=== PATIENT | male | born 1955 | race Caucasian/White ===

== ENCOUNTER → 2020-07-13 17:54 | Outpatient (CLI) | payer BC, SELFPAY | PROVIDERS: PCP Family Medicine; Referring Provider Family Medicine; Visit Provider Family Medicine | DX: Z20.828 Contact with and (suspected) exposure to other viral communicable diseases (principal) | CPT/HCPCS: 87635; U0003 ==

== ENCOUNTER → 2020-11-05 12:24 | Outpatient (CLI) | payer BC, SELFPAY | PROVIDERS: PCP Family Medicine; Referring Provider Specialist; Visit Provider Specialist | DX: Z01.818 Encounter for other preprocedural examination (principal) | CPT/HCPCS: 36415; 80048; 85025; 87077; 87081 ==

== ENCOUNTER 2020-11-21 06:44 | Observation (INO) | payer BC, SELFPAY ==
[2020-11-05 12:57] LABS: Absolute Lymphocyte Count 2.39 X10^3/uL (0.83-4.51); Basophil# 0.05 X10^3/uL; Basophil% 0.7 % (0-1); Eosinophil# 0.29 X10^3/uL; Eosinophils% 3.8 % (0-5); Hematocrit 46.4 % (40-54); Hemoglobin 15.2 g/dL (13.0-16.5); Lymphocyte # 2.39 X10^3/ul (4.0); Lymphocyte % 31.7 % (19-41); Mean Corp Hgb Conc 32.8 g/dL (32-36); Mean Corpuscular Hgb 29.7 pg (27.0-32.0); Mean Corpuscular Volume 90.8 fL (80-94); Mean Platelet Vol. 9.6 fl (6.2-12.0); Monocyte# 0.82 X10^3/uL; Monocyte% 10.9 % (0-10); NRBC Flagged by Analyzer 0 % (0-5); Neutrophil # 3.98 X10^3/uL (2.7-7.7); Neutrophil % 52.6 % (47-70); Platelet Count 268 K/mm3 (150-450); RBC Distribution Width CV 12.8 % (11.6-14.6); RBC Distribution Width SD 42.2 fl (35.1-43.9); Red Blood Count 5.11 M/mm3 (4.6-6.2); White Blood Count 7.6 K/mm3 (4.4-11.0)
--- NOTE | 2020-11-05 13:11 | HP.PCM_ITS ---
History and Physical History and Physical [facility] Patient Name: Richy Garduno : 1955 From: CATIA GAN PA-C DATE OF SURGERY: 11/21/2020 SCHEDULED PROCEDURE: right total hip arthroplasty HISTORY OF PRESENT ILLNESS: Preoperative history and physical exam was performed on November 05, 2020. This is a 65-year-old male who has had ongoing pain in his right hip for several years. Patient's pain can reach 7/10 with activities. He does complain of right groin pain. He has been seen by Dr. Olivas for ongoing low back pain in which she has had an MRI. Pain is increased with going up and down stairs and walking. Patient states it does occasionally wake him at night and he has difficult time sleeping on his right side. Patient has had conservative measures with previous intra-articular hip injections. His last injection was on August 09, 2020 which only gave temporary relief. He has tried nonsteroidal anti-inflammatories and physical therapy with minimal relief. We are obtaining surgical clearance from the patient's primary care physician Dr. Urias. He currently denies any chest pain, shortness of breath, fevers chills, or recent infections. Patient denies previous surgery on his right hip. After failing conservative measures and discussing all treatment options of Dr. Shubham Barry, the patient does wish to proceed with a right total hip arthroplasty. REVIEW OF SYSTEMS: ROS: Const: Denies change in appetite, fever and weight change. CV: Denies chest pain, heart murmur and irregular heartbeat. Resp: Denies cough, pneumonia, shortness of breath, tuberculosis and wheezing. GI: Denies constipation, diarrhea, heartburn, nausea, rectal itching, bloody stools and vomiting. : Denies incontinence. Musculo: Reports gait disturbance, trouble walking and weakness, but denies leg swelling and pain. Skin: Reports history of shingles, but denies Raynaud's and tattoo. Neuro: Reports ambulatory dysfunction, dizziness and numbness/tingling but denies tremor. Psych: Denies anxiety, insomnia and stress. Dave/Lymph: Denies anemia, bleeding/bruising tendency and past transfusion. Reviewed, no changes. PAST MEDICAL HISTORY: Advance Care Plan: No Advance Directives Effective Date: 03/22/2020 PMH: Medical Problems: Hard of Hearing, High Blood Pressure, Hypercholesterolemia, Psoriasis Accidents: None Surgical Hx: Knee Arthroscopy RT - (2008) Dr. Zachary Asher RT Elbow - (2008) @ [facility] RT Knee - (1975) @ [facility] Anesthesia Complications: None Assistive Devices: Hearing Aid, Glasses, Contacts Reviewed and updated. SOCIAL HISTORY: SH: Marital: .Occupation: Retired - Compression Molding Machine Operator.Work Status: Retired.Hand Dominance: Right-handed. Personal Habits: Cigarette Use: Never Smoked Cigarettes.Smokeless Tobacco: Never Used Smokeless Tobacco.E-Cigarette Use: Never used.Alcohol: Occasionally.Drug Use: Denies Use.Enjoy Exercising: Exercises 1-3 X/Week. Reviewed, no changes. VITALS: Ht: 67 Wt: 178lb Wt k.741 BMI: 27.9 BP: 140/70 Pulse: 68 Resp: 14 T: 95.9 T: 35.5C Pain Level: 8 ALLERGIES: PNC - Rash Strawberries - Rash MEDICATIONS: Lisinopril 10 mg 1 by mouth every day, Crestor 20 mg 1 po qd, Centrum Silver 50+Men 50+Men 1 by mouth every day, Coq10 100 mg 1 by mouth every day PRE-OP EXAM: General appearance:NORMAL Other: Eyes: Conjunctivae and lids: NORMAL Pupils: ERR Ears, Nose, Mouth, and Throat: NORMAL Other: Inspection of lips, teeth and gums: NORMAL Other: Neck: Examination of neck: no masses noted. Respiratory: Assessment of respiratory effort: NORMAL Other: Auscultation of lungs: clear to auscultation no wheezes, rhonchi or rales. Cardiovascular: Auscultation of heart: regular rate and rhythm, no murmurs, gallops or rubs. Exam of carotid arteries: NORMAL Other: Gastrointestinal: Exam of abdomen: soft, nontender, nondistended bowel sounds present. PHYSICAL EXAMINATION: Patient walks with an antalgic gait. Right hip is cool to touch without erythema or signs of infection. He has mild tenderness to palpation over the greater trochanteric region on the right hip. He has obligatory external rotation with flexion. Range of motion: Active flexion 70, internal rotation neutral, external rotation 20. IMAGING STUDIES: Previous x-rays of the right hip reveal joint space narrowing with subchondral sclerosis, osteophyte formation consistent with severe stage IV osteoarthritis IMPRESSION: 1. Right hip osteoarthritis 2. Low back pain 3. Hypertension 4. Hypercholesterolemia 5. Psoriasis PLAN: Dr. Shubham Barry did discuss and review with the patient all treatment options including surgical versus nonsurgical options. Patient does wish to proceed with the above-stated procedure. Potential risks, benefits, and complications of the procedure were discussed in detail including but not limited to , infection, nerve and blood vessel damage, persistent pain, numbness, tingling, paresthesias, blood clot, pulmonary embolism, and requirement for possible further surgery. The patient expressed full understanding and has no further questions for the doctor. Patient does agree to proceed with the above-stated procedure and has signed the surgery consent form. We discussed the current risks associated with COVID 19. This does include the risk of exposure while in the hospital. Patient was reassured local hospitals have low infection rates and are taking all necessary precautions to avoid exposure to patients. In addition, we discussed strategies that can be used to help limit exposure including those that limit the patient's time in the hospital. Also using strategies to limit the patient's need for continued inpatient services after being discharged from the hospital. Patient was notified that we will need to comply with any screening or testing the hospital wishes to perform or that surgery may be delayed for any positive results. This dictation was created using voice recognition software. Phonetic and/or grammatical errors may exist. ___ I have re-examined the patient. There are no clinical changes since date of exam. ___ See progress notes for changes. ___ Dictated on admission Date: Time: Signature:
[2020-11-05 13:17] LABS: Anion Gap 3 (5-15); BUN 16 mg/dL (7-18); BUN/Creat Ratio 17.1 RATIO (10-20); Calcium,Total 9.4 mg/dL (8.5-10.1); Chloride 103 mmol/L (98-107); Creatinine, Serum 0.94 mg/dL (0.70-1.30); EST Glomerular Filtration Rate 87 mL/min (>60); Est Glom Filt Rate - Afr Amer 105 mL/min (>60); Glucose 91 mg/dL (74-106); Potassium 4.5 mmol/L (3.5-5.1); Sodium Level 138 mmol/L (136-145)
[2020-11-07 10:10] LABS: Magnesium 2.2 mg/dL (1.6-2.6)
[2020-11-21] VITALS (14 sets, daily range): BP systolic 93–167; BP diastolic 55–114; PULSE 82–98; RESP 16–18; TEMP 36.2–37.9; O2SAT 91–100; BMI 28.2
[2020-11-21] MEDS: Scopolamine 1mg/72hr Patch 1 PATCH TD ×2 (05:50→06:29)
[2020-11-21] MEDS: Gabapentin 600 MG Tablet PO (06:28)
[2020-11-21] MEDS: Celecoxib 200 MG Capsule 400 MG PO (06:28)
[2020-11-21] MEDS: Lactated Ringers 1,000 ML 75 ML IV (06:28)
[2020-11-21] MEDS: Lactated Ringers 1,000 ML 999 ML IV ×2 (06:28→09:24)
[2020-11-21] MEDS: Acetaminophen 500 MG Tablet 1000 MG PO ×3 (06:29→22:20)
--- NOTE | 2020-11-21 06:45 | RAD_ITS ---
STUDY: X-RAY - PELVIS AND RIGHT HIP REASON FOR EXAM: Postop right hip arthroplasty. TECHNIQUE: 2 views of the pelvis and hip. COMPARISON: Intraoperative images obtained the same day. FINDINGS: There is postoperative gas in the soft tissues. Normal bilateral superior and inferior pubic rami. Normal pubic symphysis. Normal bilateral ischial tuberosities. There is a right hip arthroplasty without evidence of complication. RAD/Hip Min 2 Views (Portable) IMPRESSION: Uncomplicated right hip arthroplasty. Electronically Signed: Pedrito Ward MD at 9:47 EST Tel , Service support ,
[2020-11-21] MEDS: Cefazolin 2 GM in 0.9% Normal Saline 100 ML IV (07:22)
[2020-11-21 07:26] LABS: Bedside Glucose 108 mg/dL (70-110)
[2020-11-21] MEDS: dexAMETHasone 10 MG/ML Vial IV (07:33)
--- NOTE | 2020-11-21 08:10 | RAD_ITS ---
STUDY: X-RAY - PELVIS AND RIGHT HIP REASON FOR EXAM: Fluoroscopy for right hip arthroplasty. TECHNIQUE: 3 intraoperative images of the pelvis and hip. COMPARISON: None. FINDINGS: There is a right hip arthroplasty without evidence of complication. Electronically Signed: Pedrito Ward MD at 10:20 EST Tel , Service support , RAD/Hip 1 view with Pelvis
--- NOTE | 2020-11-21 08:41 | OP.PCM_ITS ---
Report of Operation Date of Procedure: 11/21/20 Pre-Operative Diagnosis: Right hip primary osteoarthritis Post-Operative Diagnosis: Right hip primary osteoarthritis Surgery/Procedure Performed:: Right minimally invasive direct anterior total replacement Description of Surgical Findings:: Stable hip with equal leg lengths grain blender: Billie Quispe Type of Anesthesia:: General Anesthesiologist: Nestor Ghosh Special Medications: 2 g Ancef, 1 g TXA at incision, 1 g TXA closure, 10 mg Decadron, joint cocktail (5 mg Duramorph, 30 mL of 0.5% Ropivicaine, 1000 units of epinephrine, 30 mg of Toradol) Specimen's removed: Bony cuts Estimated Blood Loss (mL): 150 Fluids Replaced: 1000 mL crystalloid Description of Procedure: Components used: 1. Accolade 2 Ol[place]stead femoral stem size 3 127? 2. [place]stead trident 2 acetabular shell size 52 mm 3. [place] X3 polyethylene e 4. Elliott Biolox delta 36mm, 0mm femoral head Brief history operative indications: 65 yo M who failed conservative measures for their hip osteoarthritis. X-rays were consistent with osteoarthritis including joint space narrowing, osteophyte formation and subchondral cysts. Total hip replacement was discussed with the patient with risks and benefits including but not limited to blood loss, DVTs, PEs, neurovascular damage, dislocation, general risks of anesthesia including loss of life. Patient demonstrated an understanding medical clearance is obtained the patient was consented for surgery. Procedure: On the date of procedure the patient's right hip was marked in the preoperative area. Patient was then taken back to the operating room where anesthesia ass umed control of the C-spine and airway and administered anesthetic. Patient was transferred to the operating table and placed in the supine position. The hips were placed at the break of the bed and a sacral bump was placed. The right lower extremity was then prepped out in a sterile fashion using chlorhexidine while the surgeon scrubbed. The PA was vital in the positioning of the patient. Upon reentering the room the right lower extremity was draped in the standard orthopedic fashion and the incision was marked. A timeout was called and everyone agreed upon the side, the site, the procedure be performed, antibody given, and patient's identity. At this time incision was made through skin, subcutaneous tissue, and fat down to fascia. The fascia was then incised and the TFL was retracted laterally. A retractor was placed on the lateral border of the femoral neck. Attention was directed to the inferior portion of the approach and all crossing vessels were identified and appropriately coagulated. A retractor was then placed on the medial portion of the femoral neck. The anterior capsule was then cleared of all soft tissue and then H shaped capsulotomy was made. The retractors were then placed inside the capsule. The femoral neck was identified and a cleanup cut was made. At this time a power corkscrew was used to remove the femoral head. Attention was then turned toward the acetabulum where the soft tissues were appropriately retracted and the acetabulum was sequentially reamed to 52 mm. A 52 mm cup was then selected and impacted into place. Acetabular liner was impacted into place and locking mechanism was verified. The position of the acetabular cup was then verified under live fluoroscopy. Attention was then turned to the femur. Soft tissue releases on the medial and lateral femoral neck were appropriately done, the leg was externally rotated and lateralized. A Rouse retractor was placed medially and proximally to the greater trochanter this allowed appropriate visualization and exposure of the femoral canal. Rongeour was then used to remove excess lateral bone. A canal finder and entry broach were used to open the proximal canal. Once we verified we were down the femoral canal we subsequently broached up to a size 3 femur. The appropriate neck was placed in the previously selected head was trialed with a 0 mm neck. Traction was pulled and the hip was reduced with internal rotation. Once it was appropriately reduced and stability was checked. There was minimal shuck, equal leg lengths and appropriate stability with hyperext ension and external rotation as well as with 90? flexion and internal rotation. Fluoroscopy was then also used to verify the position of the components and leg lengths using the contralateral side for comparison. The trial components were then dislocated the proximal femur was again exposed and the components were removed from the wound. The final components were verified and opened. The wound was copiously irrigated out with normal saline. The acetabulum was checked for any residual debris. The final components were placed and impacted. Traction and internal rotation were again used to reduce the hip. After adequate reduction the hip remained stable with appropriate leg lengths. The final components were once again checked with live fluoroscopy and were found to be satisfactory. The wound was then copiously irrigated with normal saline once more, and hemostasis was obtained. Closure was then done using #1 Vicryl runner to close the fascia. A 2-0 vicryl interuppted sutures were used to close the subcutaneous skin. A 3-0 Monocryl and Steri-Strips were used for final skin closure. A Silverlon dressing was placed. Patient was awakened by anesthesia and transferred to the [facility]. Patient was then transferred to the PACU for recovery. Postoperative plan: Patient will get 24 hours postop antibiotics. Patient will get in-house physical therapy and will be weight-bear as tolerated. Patient will follow up in office in 2 weeks for a wound check and x-rays. Aspirin 81 mg twice daily. - Complications No intraoperative complications - Admit VTE Documentation VTE Present on Admission: No VTE Mechan Device Prophylaxis: SCD's, Thigh High DONNY Hose VTE Pharm Prophylaxis ordered?: Yes
[2020-11-21] MEDS: Lactated Ringers 1,000 ML 125 ML IV ×3 (10:32→23:17)
--- NOTE | 2020-11-21 13:00 | NURSING ---
RN CM Assessment Introduced role of RN CM to patient.? Patient is alert, oriented and able?to participate in RN CM Assessment. ?Care providers, pharmacy, and demographics verified. Admit Dx: Rt THR Re-Admit: No Barriers/Issues: None PCP: Aung Urias Specialists: None [facility]erred [facility]acy[facility] Insurance: [place] [facility] Benefit:?Yes LNOK: Ann Garduno LW/HPOA: None, denies any offered advanced directive information or completion on this admission. Informed that he can complete as an outpatient with the health and social care teacher dept at a later time if he chooses. Living Arrangements:? Lives with in a H, 3 steps to enter. ADL?s: Independent with ambulation and ADLs Transportation: Both patient and drive, will transport upon DC DME: [facility] HHC: None. Patient states that he was going to outpatient PT with [facility] for his back- last session was Thursday11.19.20 and states has an appointment this Thursday11.26.20 to restart for his Hip replacement. SNF: None Goal: Home with Outpatient PT- [facility]. Denies any other needs. Denies any issues, questions or concerns with DC planning at this time. Aware RNCM will continue to follow for any emerging needs. DC PLAN: Home with outpatient PT- [facility]. F/u PT/OT eval. Already has walker at bedside. GIOVANNY Castañeda
[2020-11-21] MEDS: Famotidine 20 MG Tablet PO (13:04)
[2020-11-21] MEDS: Senna/Docusate Sodium 1 Tablet 2 TABLET PO ×2 (13:04→22:21)
[2020-11-21] MEDS: Ensure Surgery 237 ML LIQUID PO ×2 (13:05→16:37)
--- NOTE | 2020-11-21 14:32 | PN_ITS ---
Subjective: Mr. Garduno is a 65-year-old male who presented to [facility] on 11/21/2019 for an elective right total hip arthroplasty. He has had ongoing right hip pain for several years that is worse with activities and it is now to the point where it significantly impacting his IADLs. He has failed conservative management. He has a past medical history of psoriasis, hyperlipidemia, HTN, and [place]. Patient is currently resting in bed states he is having a little difficulty with urinating but this is not an issue at baseline and he has a str justin stream. I suspect his urinary retention is related to medications use intraoperatively. He states his pain is well controlled at this time and he is anxious to go home tomorrow. Vitals/I&O's: Vital Signs Temp Pulse Resp BP Pulse Ox 98.2 F 93 16 93/62 96 11/21/20 13:07 11/21/20 13:07 11/21/20 13:07 11/21/20 13:07 11/21/20 13:07 Oxygen Flow Rate (L/min) 3 Oxygen Delivery Method Nasal Cannula Weight: 81.7 kg Body Mass Index (BMI) 28.2 Intake and Output for Last 24 Hours 11/19/20 11/20/20 11/21/20 23:59 23:59 23:59 Intake Total 3728.33 / 3728.33 Balance 3728.33 / 3728.33 General: Alert, Oriented x3, Cooperative, No apparent distress, Well developed, Well nourished, - - Very pleasant upper middle-aged white male who is lying in bed resting comfortably, polar ice on right hip HEENT: Atraumatic, PERRLA, EOMI, Normocephalic, EAC Clear Oral: Moist Mucosa Neck: Supple, Trachea Midline Lungs: Clear to auscultation, Normal air movement, No rhonchi, No wheeze, No rales Cardiovascular: Regular rate, Regular Rhythm, Normal S1, No murmurs, No Ectopic Activity, No rub noted, No Gallop Abdomen: Bowel Sounds Present, Soft, Non Tender, Non-Distended Extremities: No clubbing, No cyanosis, No edema, Capillary Refill Less than 3 Seconds, Diminished Peripheral Pulses Psych/Mental Status: Normal Affect, Appropriate Microbiology Past 72 Hours 11/20/20 10:35 Interface Orders SARS-CoV-2 Antigen (Rapid) - Final Laboratory Results 11/21/20 05:55: POC Glucose 108 Current Medications Acetaminophen (Acetaminophen 500 Mg Tablet) 1,000 mg PO Q8 [facility] Last Admin: 11/21/20 13:04 Dose: 1,000 mg Documented by: Aspirin (Aspirin 81 Mg Tab.Chew) 81 mg PO BIDCM [facility] Atorvastatin Calcium (Atorvastatin Calcium 20 Mg Tablet) 20 mg PO QHS [facility] Enteral Nutritional Formula (Ensure Surgery 237 Ml Liquid) 237 ml PO TIDCM [facility] Last Admin: 11/21/20 13:05 Dose: 237 ml Documented by: Famotidine (Famotidine 20 Mg Tablet) 20 mg PO DAILY [facility] Last Admin: 11/21/20 13:04 Dose: 20 mg Documented by: Lactated Ringer's () 1,000 mls @ 125 mls/hr IV .Q8H [facility] Stop: 11/21/20 14:59 Last Infusion: 11/21/20 11:00 Dose: Infused Documented by: Lactated Ringer's () 1,000 mls @ 125 mls/hr IV .Q8H [facility] Last Admin: 11/21/20 13:05 Dose: 125 mls/hr Documented by: Cefazolin Sodium () 1 gm in 50 mls @ 150 mls/hr IV Q8H [facility] Stop: 11/21/20 23:49 Vancomycin HCl 1,250 mg/ (Sodium Chloride) 275 mls @ 167 mls/hr IV X1 ONE Stop: 11/21/20 20:38 Insulin Human Lispro (Insulin Lispro 100 Unit/Ml Insuln.Pen) 1 - 6 unit SC Q4H PRN PRN; Protocol PRN Reason: BG>/= 180, SEE PROTOCOL Stop: 11/21/20 18:00 Ketorolac Tromethamine (Ketorolac 15 Mg/Ml Vial) 15 mg IV Q6H PRN PRN PRN Reason: Pain Score 1-5 Stop: 11/23/20 06:47 Lisinopril (Lisinopril 10 Mg Tablet) 10 mg PO DAILY [facility] Meloxicam (Meloxicam 7.5 Mg Tablet) 7.5 mg PO BID [facility] Morphine Sulfate (Morphine 2 Mg/Ml Syringe) 2 - 4 mg IV Q2H PRN PRN PRN Reason: Pain Score 4-10 Morphine Sulfate (Morphine 4 Mg/Ml Syringe) 2 - 4 mg IV Q2H PRN PRN PRN Reason: Pain Score 4-10 Ondansetron HCl (Ondansetron 4 Mg/2 Ml Vial) 4 mg IV Q8H PRN PRN PRN Reason: NAUSEA Oxycodone HCl (Oxycodone 5 Mg Tablet) 5 - 10 mg PO Q4H PRN PRN PRN Reason: Pain Score 4-10 Promethazine HCl (Promethazine 25 Mg/Ml Syringe) 12.5 mg IM Q6H PRN PRN; Protocol PRN Reason: NAUSEA/VOMITING Senna/Docusate Sodium (Senna/Docusate Sodium 1 Tablet) 2 tablet PO BID NANCY Last Admin: 11/21/20 13:04 Dose: 2 tablet Documented by: Sodium Chloride (0.9% Nacl Peripheral Flush Adult/Peds) 5 - 15 ml IV UD PRN PRN Reason: SALINE FLUSH Sodium Chloride (0.9% Saline Lock 10 Ml Syringe) 10 - 40 ml IV UD PRN PRN Reason: SALINE FLUSH STROKE Vital Signs/Narrative: Vital Signs Temp Pulse Resp BP Pulse Ox 11/21/20 13:07 98.2 F 93 16 93/62 96 11/21/20 11:07 99.0 F 98 16 120/81 H 91 11/21/20 10:45 98.4 F 93 16 113/78 93 Medical Necessity - Tobacco Use Smoking Status: Never smoker Assessment/Plan Right hip OA status post right ALEK POD #0 -Management per primary service -Bowel regimen -Motion restriction per orthopedics -PT/OT consultation -CBC and BMP in the morning Urinary retention -Suspect secondary to medications used intraoperatively and narcotics -We will start Flomax to initiate tonight -Will be a short-term course this patient has no symptoms at baseline HTN -Continue lisinopril 10 mg daily HPL -Continue Crestor 10 mg nightly DVT prophylaxis -Management per primary, currently on aspirin Inpatient E&M: [id number] [facility] L[facility]
[2020-11-21] MEDS: Cefazolin 1 GM/50 ML BAG IV ×2 (15:23→23:18)
[2020-11-21] MEDS: oxyCODONE 5 MG Tablet PO ×2 (15:32→20:12)
[2020-11-21] MEDS: Aspirin 81 MG TAB.CHEW PO (16:36)
[2020-11-21] MEDS: Tamsulosin HCl 0.4 MG Capsule PO (16:36)
[2020-11-21] MEDS: Atorvastatin Calcium 20 MG Tablet PO (22:20)
[2020-11-22 02:41] VITALS: BP 121/64; PULSE 77; RESP 18; TEMP 36.7; O2SAT 96
[2020-11-22] MEDS: Acetaminophen 500 MG Tablet 1000 MG PO ×2 (05:16→13:56)
[2020-11-22] MEDS: oxyCODONE 5 MG Tablet PO ×2 (06:33→14:02)
[2020-11-22 06:40] LABS: Hematocrit 33.4 % (40-54); Hemoglobin 11.1 g/dL (13.0-16.5); Mean Corp Hgb Conc 33.2 g/dL (32-36); Mean Corpuscular Hgb 30.2 pg (27.0-32.0); Mean Platelet Vol. 9.5 fl (6.2-12.0); Platelet Count 208 K/mm3 (150-450); RBC Distribution Width CV 12.6 % (11.6-14.6); Red Blood Count 3.67 M/mm3 (4.6-6.2); White Blood Count 13.9 K/mm3 (4.4-11.0)
[2020-11-22 07:30] LABS: Anion Gap 5 (5-15); BUN 18 mg/dL (7-18); BUN/Creat Ratio 20.5 RATIO (10-20); Calcium,Total 8.5 mg/dL (8.5-10.1); Chloride 109 mmol/L (98-107); Creatinine, Serum 0.88 mg/dL (0.70-1.30); EST Glomerular Filtration Rate 93 mL/min (>60); Est Glom Filt Rate - Afr Amer 112 mL/min (>60); Estimated Creatinine Clearance 80.33 ml/min; Glucose 128 mg/dL (74-106); Potassium 4.1 mmol/L (3.5-5.1); Sodium Level 140 mmol/L (136-145)
[2020-11-22 08:08] VITALS: BP 120/62; PULSE 75; RESP 16; TEMP 37; O2SAT 97
[2020-11-22 08:10] VITALS: RESP 16; O2SAT 97
[2020-11-22] MEDS: Famotidine 20 MG Tablet PO (09:04)
[2020-11-22] MEDS: Aspirin 81 MG TAB.CHEW PO (09:04)
[2020-11-22] MEDS: Senna/Docusate Sodium 1 Tablet 2 TABLET PO (09:04)
[2020-11-22] MEDS: Lisinopril 10 MG Tablet PO (09:04)
[2020-11-22] MEDS: Ensure Surgery 237 ML LIQUID PO ×2 (09:08→11:54)
--- NOTE | 2020-11-22 09:56 | PN.ORTHO_ITS ---
Subjective: The patient was sitting in bedside chair upon examination. Patient denies any chest pain, shortness of breath, dizziness, lightheadedness, nausea or vomiting, or calf pain. Pain is controlled on medications. No adverse overnight events. Overall patient is doing well and has tolerated physical therapy. Plan is for patient to be discharged home today. Objective: Vital signs stable and afebrile. Patient is able to plantarflex and dorsiflex actively. Sensation is intact to light touch to saphenous, sural, superficial and deep peroneal, and tibial distribution. Dressing is clean dry and intact. Negative Homans bilaterally, negative signs and symptoms of DVT. - Physical Exam Vitals/I&O's: Vital Signs Temp Pulse Resp BP Pulse Ox 98.6 F 75 16 120/62 97 11/22/20 08:08 11/22/20 08:08 11/22/20 08:10 11/22/20 08:08 11/22/20 08:10 Oxygen Flow Rate (L/min) 2 Oxygen Delivery Method Room Air Weight: 81.7 kg Body Mass Index (BMI) 28.2 Intake and Output for Last 24 Hours 11/20/20 11/21/20 11/22/20 23:59 23:59 23:59 Intake Total 5999.58 / 5999.58 1412.5 / 1412.5 Output Total 200 / 200 Balance 5799.58 / 5799.58 1412.5 / 1412.5 General: Alert, Oriented x3, Cooperative, No apparent distress Microbiology Past 72 Hours 11/20/20 10:35 Interface Orders SARS-CoV-2 Antigen (Rapid) - Final Laboratory Results 11/22/20 06:20: WBC 13.9 H, RBC 3.67 L, Hgb 11.1 L, Hct 33.4 L, MCV 91.0, MCH 30.2, MCHC 33.2, RDW Std Deviation 42.0, RDW Coeff of Fernando 12.6, Plt Count 208, MPV 9.5 11/22/20 06:20: Sodium 140, Potassium 4.1, Chloride 109 H, Carbon Dioxide 26.0, Anion Gap 5, BUN 18, Creatinine 0.88, Estim Creat Clear Calc 80.33, Est GFR (MDRD) Af Amer 112, Est GFR (MDRD) Non-Af 93, BUN/Creatinine Ratio 20.5 H, Glucose 128 H, Calcium 8.5 Current Medications Acetaminophen (Acetaminophen 500 Mg Tablet) 1,000 mg PO Q8 [facility] Last Admin: 11/22/20 05:16 Dose: 1,000 mg Documented by: Aspirin ([facility] 81 Mg [facility].Chew) [facility] Last Admin: 11/22/20 09:04 Dose: 81 mg Documented by: Atorvastatin Calcium (Atorvastatin Calcium 20 Mg Tablet) 20 mg PO QHS [facility] Last Admin: 11/21/20 22:20 Dose: 20 mg Documented by: Enteral Nutritional Formula (Ensure Surgery 237 Ml Liquid) 237 ml PO TIDCM [facility] Last Admin: 11/22/20 09:08 Dose: 237 ml Documented by: Famotidine (Famotidine 20 Mg Tablet) 20 mg PO DAILY [facility] Last Admin: 11/22/20 09:04 Dose: 20 mg Documented by: Ketorolac Tromethamine (Ketorolac 15 Mg/Ml Vial) 15 mg IV Q6H PRN PRN PRN Reason: Pain Score 1-5 Stop: 11/23/20 06:47 Lisinopril (Lisinopril 10 Mg Tablet) 10 mg PO DAILY [facility] Last Admin: 11/22/20 09:04 Dose: 10 mg Documented by: Meloxicam (Meloxicam 7.5 Mg Tablet) 7.5 mg PO BID [facility] Morphine Sulfate (Morphine 2 Mg/Ml Syringe) 2 - 4 mg IV Q2H PRN PRN PRN Reason: Pain Score 4-10 Morphine Sulfate (Morphine 4 Mg/Ml Syringe) 2 - 4 mg IV Q2H PRN PRN PRN Reason: Pain Score 4-10 Ondansetron HCl (Ondansetron 4 Mg/2 Ml Vial) 4 mg IV Q8H PRN PRN PRN Reason: NAUSEA Oxycodone HCl (Oxycodone 5 Mg Tablet) 5 - 10 mg PO Q4H PRN PRN PRN Reason: Pain Score 4-10 Last Admin: 11/22/20 06:33 Dose: 5 mg Documented by: Promethazine HCl (Promethazine 25 Mg/Ml Syringe) 12.5 mg IM Q6H PRN PRN; Protocol PRN Reason: NAUSEA/VOMITING Senna/Docusate Sodium (Senna/Docusate Sodium 1 Tablet) 2 tablet PO BID [facility] Last Admin: 11/22/20 09:04 Dose: 2 tablet Documented by: Sodium Chloride (0.9% Nacl Peripheral Flush Adult/Peds) 5 - 15 ml IV UD PRN PRN Reason: SALINE FLUSH Sodium Chloride (0.9% Saline Lock 10 Ml Syringe) 10 - 40 ml IV UD PRN PRN Reason: SALINE FLUSH Tamsulosin HCl (Tamsulosin Hcl 0.4 Mg Capsule) 0.4 mg PO DAILY@1730 [facility] Last Admin: 11/21/20 16:36 Dose: 0.4 mg Documented by: Medical Necessity - Tobacco Use Smoking Status: Never smoker Assessment/Plan 1. S/P direct anterior right total hip arthroplasty POD #1 2. Continue Pain Medications: Tylenol, meloxicam, oxycodone 3. DVT Prophylaxis: Take 81 mg aspirin twice daily for 4 weeks postoperatively for DVT prophylaxis 4. PT/OT: Weightbearing as tolerated 5. H & H: 11.1/33.4, asymptomatic. Postoperative anemia secondary to acute blood loss from surgery without any intra operative complications. 6. Reactive leukocytosis: Currently 13.9, afebrile. Patient did receive Decad anh intraoperatively 7. Continue postoperative medical management per medicine 8. Encouraged Incentive Spirometry 9. Disposition: Orthopedically stable, plan will be for discharge home today. Prescriptions will be E scribed to [facility]. Patient has outpatient physical therapy established. He will follow-up per postop instructions. I have reviewed the [place] Automated Rx Reporting System (OARRS) report for this patient for refill pattern and other prescriber involvement as part of the appropriate surveillance for the provision of acute and chronic controlled medications. The report was requested and reviewed on the date of this entry and was considered in the prescribing process.
--- NOTE | 2020-11-22 10:01 | PCM.DC.THR ---
Discharge Activity: May Not Drive - while taking narcotic pain medications. May shower in (days): 1 - Okay to shower if dressing is intact to skin. Turn dressing away from water. Do not submerge underwater for 6 weeks postoperatively. Ice area for (Minutes): 20 - Every 1-2 hours while awake Weight Bearing Status: Weight bearing as tolerated Elevate: Operative Extremity Additional Activity Instructions:: Wear elastic stockings for 2 weeks. DO NOT use alcohol with narcotic pain medication. DO NOT make important decisions while taking narcotic medication. If you have problems with taking your medication (rash, itching, nausea, etc.) call the office at once. Call your doctor if your incision/area has: Increased Pain/ Swelling, Increased Redness, Foul Smelling Discharge Call your doctor if you observe: Fever of 101 or Higher Remove Dressing in (days):: 4 - Okay to remove dressing on November 26, 2020 Additional Instructions: Follow [facility] Post-op Instructions. Once postoperative dressing has been removed only use gentle soap and water over the incision. Do not use any ointments, Neosporin, salves, alcohol pads over the incision for 6 weeks postoperatively. Do not submerge underwater for 6 weeks postoperatively. Allergies/Adverse Reactions: Allergies Penicillins Allergy (Verified 11/21/20 05:34) Rash strawberry Allergy (Verified 11/21/20 05:34) Rash Medications to take at Discharge Lisinopril [Zestril] 10 mg PO DAILY 11/07/20 Rosuvastatin Calcium [Crestor] 10 mg PO QHS 11/07/20 Acetaminophen [Tylenol] 1,000 mg PO Q8 30 Days tablet 11/22/20 Aspirin [Aspirin, Baby] 81 mg PO BIDCM 30 Days tab.chew 11/22/20 Famotidine [Pepcid] 20 mg PO DAILY #30 tab 11/22/20 Meloxicam [Mobic] 7.5 mg PO BID #60 tab 11/22/20 Oxycodone [Oxyir] 5 - 10 mg PO Q4H PRN PRN 5 Days #60 tablet 11/22/20 Senna/Docusate Sodium [Senokot-S] 2 tab PO BID #14 tab 11/22/20 The following prescriptions were given: Meloxicam [Mobic] 7.5 mg PO BID #60 tab Transmission Status: Pending to [facility] Oxycodone [Oxyir] 5 - 10 mg PO Q4H PRN PRN 5 Days #60 tablet PRN Reason: Pain Score 4-10 Transmission Status: Sent to [facility] Famotidine [Pepcid] 20 mg PO DAILY #30 tab Transmission Status: Pending to [facility] Senna/Docusate Sodium [Senokot-S] 2 tab PO BID #14 tab Transmission Status: Pending to [facility] Primary Care Physician: Aung Urias MD [Primary Care Provider] - Test Results: Test results from this visit will be discussed in further detail at your follow-up appointment, if applicable. Please Follow Up With: Physical Therapy When: 11/26/20 @ 10:30 am Please Follow Up With: Erick Godfrey PA-C When: 12/05/20 @ 10:30 am
--- NOTE | 2020-11-22 10:24 | PCM.PN.HOSP ---
Subjective: Patient states he is feeling extremely well this morning. His only complaint is pain in the right anterior thigh and he states it feels like a charley horse when he stands up but otherwise his pain is well controlled. He is anxiously awaiting physical therapy to arrive so he can get moving. He is anxious to go home today. Vitals/I&O's: Vital Signs Temp Pulse Resp BP Pulse Ox 98.6 F 75 16 120/62 97 11/22/20 08:08 11/22/20 08:08 11/22/20 08:10 11/22/20 08:08 11/22/20 08:10 Oxygen Flow Rate (L/min) 2 Oxygen Delivery Method Room Air Weight: 81.7 kg Body Mass Index (BMI) 28.2 Intake and Output for Last 24 Hours 11/20/20 11/21/20 11/22/20 23:59 23:59 23:59 Intake Total 5999.58 / 5999.58 1412.5 / 1412.5 Output Total 200 / 200 Balance 5799.58 / 5799.58 1412.5 / 1412.5 General: Alert, Oriented x3, Cooperative, No apparent distress, Well developed, Well nourished, - - Upper middle-aged white male sitting up in a chair watching TV, is dressed in street close HEENT: Atraumatic, Normocephalic Oral: Moist Mucosa Neck: Supple, Trachea Midline Lungs: Clear to auscultation, Normal air movement, No rhonchi, No wheeze, No rales Cardiovascular: Regular rate, Regular Rhythm, Normal S1, Normal S2, No murmurs, No Ectopic Activity, No rub noted, No Gallop Abdomen: Bowel Sounds Present, Soft, Non Tender, Non-Distended Extremities: No clubbing, No cyanosis, No edema, Capillary Refill Less than 3 Seconds, Peripheral Pulses Normal, - - DONNY hose in place, right hip with polar ice in place Neurological: Cranial nerves II-XII grossly intact, Neuro grossly intact Psych/Mental Status: Normal Affect, Appropriate Microbiology Past 72 Hours 11/20/20 10:35 Interface Orders SARS-CoV-2 Antigen (Rapid) - Final Laboratory Results 11/22/20 06:20: WBC 13.9 H, RBC 3.67 L, Hgb 11.1 L, Hct 33.4 L, MCV 91.0, MCH 30.2, MCHC 33.2, RDW Std Deviation 42.0, RDW Coeff of Fenrando 12.6, Plt Count 208, MPV 9.5 11/22/20 06:20: Sodium 140, Potassium 4.1, Chloride 109 H, Carbon Dioxide 26.0, Anion Gap 5, BUN 18, Creatinine 0.88, Estim Creat Clear Calc 80.33, Est GFR (MDRD) Af Amer 112, Est GFR (MDRD) Non-Af 93, BUN/Creatinine Ratio 20.5 H, Glucose 128 H, Calcium 8.5 Current Medications Acetaminophen (Acetaminophen 500 Mg Tablet) 1,000 mg PO Q8 [facility] Last Admin: 11/22/20 05:16 Dose: 1,000 mg Documented by: Aspirin (Aspirin 81 Mg Tab.Chew) 81 mg PO BIDCM [facility] Last Admin: 11/22/20 09:04 Dose: 81 mg Documented by: Atorvastatin Calcium (Atorvastatin Calcium 20 Mg Tablet) 20 mg PO QHS [facility] Last Admin: 11/21/20 22:20 Dose: 20 mg Documented by: Enteral Nutritional Formula (Ensure Surgery 237 Ml Liquid) 237 ml PO TIDCM [facility] Last Admin: 11/22/20 09:08 Dose: 237 ml Documented by: Famotidine (Famotidine 20 Mg Tablet) 20 mg PO DAILY [facility] Last Admin: 11/22/20 09:04 Dose: 20 mg Documented by: Ketorolac Tromethamine (Ketorolac 15 Mg/Ml Vial) 15 mg IV Q6H PRN PRN PRN Reason: Pain Score 1-5 Stop: 11/23/20 06:47 Lisinopril (Lisinopril 10 Mg Tablet) 10 mg PO DAILY [facility] Last Admin: 11/22/20 09:04 Dose: 10 mg Documented by: Meloxicam (Meloxicam 7.5 Mg Tablet) 7.5 mg PO BID [facility] Morphine Sulfate (Morphine 2 Mg/Ml Syringe) 2 - 4 mg IV Q2H PRN PRN PRN Reason: Pain Score 4-10 Morphine Sulfate (Morphine 4 Mg/Ml Syringe) 2 - 4 mg IV Q2H PRN PRN PRN Reason: Pain Score 4-10 Ondansetron HCl (Ondansetron 4 Mg/2 Ml Vial) 4 mg IV Q8H PRN PRN PRN Reason: NAUSEA Oxycodone HCl (Oxycodone 5 Mg Tablet) 5 - 10 mg PO Q4H PRN PRN PRN Reason: Pain Score 4-10 Last Admin: 11/22/20 06:33 Dose: 5 mg Documented by: Promethazine HCl (Promethazine 25 Mg/Ml Syringe) 12.5 mg IM Q6H PRN PRN; Protocol PRN Reason: NAUSEA/VOMITING Senna/Docusate Sodium (Senna/Docusate Sodium 1 Tablet) 2 tablet PO BID [facility] Last Admin: 11/22/20 09:04 Dose: 2 tablet Documented by: Sodium Chloride (0.9% Nacl Peripheral Flush Adult/Peds) 5 - 15 ml IV UD PRN PRN Reason: SALINE FLUSH Sodium Chloride (0.9% Saline Lock 10 Ml Syringe) 10 - 40 ml IV UD PRN PRN Reason: SALINE FLUSH Tamsulosin HCl (Tamsulosin Hcl 0.4 Mg Capsule) 0.4 mg PO DAILY@1730 [facility] Last Admin: 11/21/20 16:36 Dose: 0.4 mg Documented by: STROKE Vital Signs/Narrative: Vital Signs Temp Pulse Resp BP Pulse Ox 11/22/20 08:10 16 97 11/22/20 08:08 98.6 F 75 16 120/62 97 Medical Necessity - Tobacco Use Smoking Status: Never smoker Assessment/Plan Right hip OA status post right ALEK POD #0 -Management per primary service -Bowel regimen -Motion restriction per orthopedics -PT/OT are following Acute blood loss anemia -Suspect related to surgical intervention and hemodilution with fluids intra and postoperatively -Repeat CBC in 6 weeks -No signs of acute blood loss Urinary retention -Suspect secondary to medications used intraoperatively and narcotics -Flomax she hated last night because of some retention issues -Need to discharge him home on this if he is urinating without issues HTN -Continue lisinopril 10 mg daily -He remained stable HPL -Continue Crestor 10 mg nightly DVT prophylaxis -Management per primary, currently on aspirin Disposition -Okay from medical standpoint to discharge home today Inpatient E&M: 55626 Subs Hosp L2
[2020-11-22 13:40] VITALS: BP 129/70; PULSE 83; RESP 18; TEMP 37.4; O2SAT 95
[2020-11-22 13:44] VITALS: PULSE 83; RESP 18; O2SAT 95
--- NOTE | 2020-11-22 14:17 | PHA.DC.MC ---
Pharmacy Service has performed discharge medication reconciliation and counseling for this patient. The patient was counseled on the following discharge medications and changes in medications for homegoing were reviewed. 1. TYLENOL 2. ASPIRIN 3. PEPCID 4. MOBIC 5. OXYCODONE 6. SENNA/DOCUSATE The Reason for Use, instructions for use, and potential side effects were reviewed for all new medications. The patient's questions regarding all of their medications were answered. The patient was able to verbally demonstrate an understanding of their discharge medications. Home Medications Lisinopril [Zestril] 10 mg PO DAILY 11/07/20 Rosuvastatin Calcium [Crestor] 10 mg PO QHS 11/07/20 Acetaminophen [Tylenol] 1,000 mg PO Q8 30 Days tab 11/22/20 Aspirin [Aspirin, Baby] 81 mg PO BIDCM 30 Days tab.chew 11/22/20 Famotidine [Pepcid] 20 mg PO DAILY #30 tab 11/22/20 Meloxicam [Mobic] 7.5 mg PO BID #60 tab 11/22/20 Oxycodone [Oxyir] 5 - 10 mg PO Q4H PRN PRN 5 Days #60 tab 11/22/20 Senna/Docusate Sodium [Senokot-S] 2 tab PO BID #14 tab 11/22/20 The patient's discharge medication list was reviewed for discrepancies and discrepancies were resolved.
== END 2020-11-22 14:16 | disposition home or self-care (01) ==
LOC: SDC 09:33 → MS3 09:33
PROVIDERS: Anesthesiology; Admitting Provider Specialist; PCP Family Medicine; Referring Provider Specialist; Visit Provider Internal Medicine
PROC: (CPT 27284; principal; 2020-11-21 07:05)
DX: M16.11 Unilateral primary osteoarthritis, right hip (principal); Z20.828 Contact with and (suspected) exposure to other viral communicable diseases; L40.9 Psoriasis, unspecified; E78.00 Pure hypercholesterolemia, unspecified; I10 Essential (primary) hypertension; Z79.899 Other long term (current) drug therapy; H91.90 Unspecified hearing loss, unspecified ear; E78.5 Hyperlipidemia, unspecified; R33.9 Retention of urine, unspecified; K21.9 Gastro-esophageal reflux disease without esophagitis
CPT/HCPCS: 01214; 27130; 36415; 73501; 73502; 76000; 80048; 82962; 83735; 85025; 85027; 87077; 87081; 87426; 96361; 96365; 96366; 96367; 97110; 97116; 97162; 97166; 97530; 97535; 99218; 99251; C1776; C9803; J7050; J7120; G0378; G0379; G0463

== ENCOUNTER → 2020-11-26 11:13 | Outpatient (CLI) | payer BC, SELFPAY ==
[2020-11-21 11:07] VITALS: BMI 28.2
--- NOTE | 2020-11-26 11:18 | RAD_ITS ---
STUDY: X-RAY CHEST REASON FOR EXAM: Male, 65 years old. FEVER, POST OP- HAD HIP REPLACEMENT x5 DAYS AGO -- CHEST DISCOMFORT TECHNIQUE: Single PA view of the chest. COMPARISON: None. FINDINGS: The lungs are clear and expanded. There is no demonstrated pleural abnormality. Normal size heart. Normal mediastinum and wiley. Normal visualized pulmonary arteries. Normal visualized aortic arch and descending thoracic aorta. Normal visualized thoracic spine. Normal visualized ribs, clavicles, and shoulders. There is no demonstrated abnormality of the visualized soft tissue structures of the upper abdomen. RAD/Chest PA and Lateral IMPRESSION: Normal x-ray examination of the chest. Electronically Signed: Heike Shanks MD at 0:27 EST , Service support ,
[2020-11-26 12:29] LABS: Absolute Neutrophil Count 5.2 X10^3/uL (2.0-7.7); Basophil# 0.06 X10^3/uL; Basophil% 0.7 % (0-1); Eosinophil# 0.35 X10^3/uL; Eosinophils% 4.3 % (0-5); Hematocrit 40.5 % (40-54); Hemoglobin 13.1 g/dL (13.0-16.5); Lymphocyte % 18.5 % (19-41); Mean Corp Hgb Conc 32.3 g/dL (32-36); Mean Corpuscular Hgb 29.7 pg (27.0-32.0); Mean Corpuscular Volume 91.8 fL (80-94); Mean Platelet Vol. 9.8 fl (6.2-12.0); Monocyte# 0.89 X10^3/uL; NRBC Flagged by Analyzer 0 % (0-5); Neutrophil # 5.18 X10^3/uL (2.7-7.7); Neutrophil % 64.1 % (47-70); Platelet Count 310 K/mm3 (150-450); RBC Distribution Width CV 12.7 % (11.6-14.6); RBC Distribution Width SD 43.2 fl (35.1-43.9); Red Blood Count 4.41 M/mm3 (4.6-6.2); White Blood Count 8.1 K/mm3 (4.4-11.0)
[2020-11-26 13:13] LABS: ALB/GLOB Ratio 0.8 RATIO (0.9-2.4); AST(SGOT) 31 U/L (15-37); Alanine Aminotransfer ALT/SGPT 42 U/L (16-61); Albumin, Serum 3.4 g/dL (3.2-5.0); Alkaline Phosphatase 66 U/L (45-117); Anion Gap 5 (5-15); BUN 20 mg/dL (7-18); BUN/Creat Ratio 23.7 RATIO (10-20); Calcium,Total 9.6 mg/dL (8.5-10.1); Chloride 108 mmol/L (98-107); Creatinine, Serum 0.84 mg/dL (0.70-1.30); EST Glomerular Filtration Rate 98 mL/min (>60); Est Glom Filt Rate - Afr Amer 118 mL/min (>60); Globulin 4.4 g/dL (2.2-4.2); Glucose 103 mg/dL (74-106); Potassium 3.7 mmol/L (3.5-5.1); Protein, Total 7.8 g/dL (6.4-8.2); Sodium Level 140 mmol/L (136-145)
== END ==
PROVIDERS: PCP Family Medicine; Referring Provider Family Medicine; Visit Provider Family Medicine
DX: R50.9 Fever, unspecified (principal)
CPT/HCPCS: 36415; 71046; 80053; 85025

== ENCOUNTER → 2021-03-19 10:29 | Outpatient (CLI) | payer BC, SELFPAY ==
[2020-11-21 11:07] VITALS: BMI 28.2
== END ==
PROVIDERS: PCP Family Medicine; Visit Provider Family Medicine
DX: R19.7 Diarrhea, unspecified (principal)
CPT/HCPCS: 87177; 87209; 87493; 87506

== ENCOUNTER → 2021-03-20 08:21 | Outpatient (CLI) | payer BC, SELFPAY ==
[2020-11-21 11:07] VITALS: BMI 28.2
[2021-03-20 10:07] LABS: Absolute Lymphocyte Count 1.27 X10^3/uL (0.83-4.51); Absolute Neutrophil Count 5.3 X10^3/uL (2.0-7.7); Basophil# 0.03 X10^3/uL; Basophil% 0.4 % (0-1); Eosinophil# 0.16 X10^3/uL; Eosinophils% 2.1 % (0-5); Hematocrit 42.5 % (40-54); Lymphocyte # 1.27 X10^3/ul (0.83-4.51); Lymphocyte % 16.4 % (19-41); Mean Corp Hgb Conc 32.9 g/dL (32-36); Mean Corpuscular Hgb 29.5 pg (27.0-32.0); Mean Corpuscular Volume 89.5 fL (80-94); Mean Platelet Vol. 9.6 fl (6.2-12.0); Monocyte# 0.97 X10^3/uL; Monocyte% 12.5 % (0-10); NRBC Flagged by Analyzer 0 % (0-5); Neutrophil # 5.29 X10^3/uL (2.7-7.7); Neutrophil % 68.3 % (47-70); Platelet Count 282 K/mm3 (150-450); RBC Distribution Width CV 13.9 % (11.6-14.6); RBC Distribution Width SD 45.3 fl (35.1-43.9); Red Blood Count 4.75 M/mm3 (4.6-6.2); White Blood Count 7.7 K/mm3 (4.4-11.0)
[2021-03-20 10:44] LABS: ALB/GLOB Ratio 1.2 RATIO (0.9-2.4); AST(SGOT) 17 U/L (15-37); Alanine Aminotransfer ALT/SGPT 29 U/L (16-61); Albumin, Serum 3.8 g/dL (3.2-5.0); Alkaline Phosphatase 64 U/L (45-117); Anion Gap 4 (5-15); BUN 11 mg/dL (7-18); BUN/Creat Ratio 12.9 RATIO (10-20); Calcium,Total 9.5 mg/dL (8.5-10.1); Chloride 108 mmol/L (98-107); Cholesterol 109 mg/dL (200); Creatinine, Serum 0.85 mg/dL (0.70-1.30); EST Glomerular Filtration Rate 97 mL/min (>60); Est Glom Filt Rate - Afr Amer 117 mL/min (>60); Globulin 3.3 g/dL (2.2-4.2); Glucose 99 mg/dL (74-106); High Density Lipoprotein 44 mg/dL; Lipase 83 U/L (73-393); Potassium 3.7 mmol/L (3.5-5.1); Protein, Total 7.1 g/dL (6.4-8.2); Sodium Level 141 mmol/L (136-145); Triglycerides 104 mg/dL; Very Low Density Lipoprotein 21 mg/dL (5-40)
== END ==
PROVIDERS: PCP Family Medicine; Referring Provider Family Medicine; Visit Provider Family Medicine
DX: I10 Essential (primary) hypertension (principal); E78.5 Hyperlipidemia, unspecified; R10.9 Unspecified abdominal pain
CPT/HCPCS: 36415; 80053; 80061; 83690; 85025

== ENCOUNTER → 2021-03-22 08:50 | Outpatient (CLI) | payer BC, SELFPAY ==
[2020-11-21 11:07] VITALS: BMI 28.2
--- NOTE | 2021-03-22 08:52 | US_ITS ---
STUDY: ABDOMINAL ULTRASOUND REASON FOR EXAM: Male, 65 years old. UNSPECIFIED ABD PAIN TECHNIQUE: Transabdominal ultrasound was performed with real-time and static mitchell scale imaging. TECHNICAL QUALITY: Adequate. COMPARISON: None. FINDINGS: Liver: The liver measures 16.3 cm. There is increased echogenicity consistent with fatty infiltration. The bile ducts are within normal limits. There is hepatic color flow. The direction of portal flow is hepatopetal. There is no demonstrated mass lesion. Gallbladder: Normal distended gallbladder. The gallbladder wall measures 1.8 mm. There is a negative sonographic Gilliam''s sign. There is no pericholecystic fluid. There are no gallstones. There is a 5 mm x 5 mm gallbladder polyp. Common Bile Duct (C.B.D.): The common bile duct measures 5.9 mm. Pancreas: Normal size of the head, body and tail of the pancreas. There is increased echogenicity of the pancreas. There is no demonstrated pancreatic mass or cyst. Spleen: Normal size of the spleen. The spleen measures 10.3 cm x 5 cm x 4.3 cm. Right Kidney: Normal size of the right kidney. The right kidney measures 11 cm x 6.1 cm x 5.8 cm. Normal renal cortex. The right cortex measures 2.6 cm. There is no demonstrated renal mass or cyst. There is no right hydronephrosis. Left Kidney: Normal size of the left kidney. The left kidney measures 12 cm x 5.1 cm x 6 cm. Normal renal cortex. The left cortex measures 1.6 cm. There is no demonstrated renal mass or cyst. There is no left hydronephrosis. Findings suggestive of a 4 mm nonobstructive left intrarenal calculus. Aorta: Unremarkable. I.V.C.: The IVC is patent. There is no ascites. US/Abdomen Complete IMPRESSION: Fatty infiltration of the liver. 5 mm gallbladder polyp. Electronically Signed: Didier Licona MD at 14:03 EDT , Service support ,
== END ==
PROVIDERS: PCP Family Medicine; Referring Provider Nurse Practitioner Family; Visit Provider Nurse Practitioner Family
DX: R10.9 Unspecified abdominal pain (principal)
CPT/HCPCS: 76700

== ENCOUNTER 2021-04-04 11:18 | Emergency (ER) | payer BC, SELFPAY ==
[2020-11-21 11:07] VITALS: BMI 28.2
[2021-04-04 11:19] VITALS: BP 146/91; PULSE 79; RESP 16; TEMP 36.9; O2SAT 95; BMI 27.6
--- NOTE | 2021-04-04 11:26 | EDS_ITS ---
HPI History of Present Illness Chief Complaint: Allergic Reaction Informant: patient Onset/Context/Timing Onset: Today Context: Gradual Onset Timing: Continuous Current Severity: Moderate Maximum Severity: Moderate Narrative Narrative: The patient is a healthy 65-year-old male with medical history significant for hypertension hyperlipidemia presents to the emergency department with a wasp sting. Patient states he was trying to remove a decorative ornament on his house. He states when he pulled it off, there was a nest behind. He was stung on the right ear and on the right forearm. Happened about half an hour ago. He denies shortness of breath, chest pain, or other symptoms. He has no history of anaphylaxis. He is not taken anything for it. Prior similar symptoms: No Recent Illness/Hospitalization: No PFSH [facility] Medical History (Updated 04/04/21 @ 11:28 by Odalys Webb) High cholesterol Hypertension Home Medications lisinopril 10 mg PO DAILY 11/07/20 [History Last Taken 11/21/20] rosuvastatin 10 mg PO QHS 11/07/20 [History Last Taken Unknown] famotidine 20 mg PO DAILY #30 tab 11/22/20 [Rx Last Taken Unknown] meloxicam 7.5 mg PO BID #60 tab 11/22/20 [Rx Last Taken Unknown] sennosides-docusate sodium 2 tab PO BID #14 tab 11/22/20 [Rx Last Taken Unknown] prednisone 60 mg PO DAILY #15 tablet 04/04/21 [Rx Last Taken Unknown] Allergy/AdvReac Type Severity Reaction Status Date / Time Penicillins Allergy Rash Verified 04/04/21 11:18 strawberry Allergy Rash Verified 04/04/21 11:18 Social History Smoking Status: Never smoker ROS ROS ED Constitutional Constitutional ED: Denies chills or fever(s) Eyes Eyes: Denies blurry vision or change in vision ENT ENT ED: Denies ear pain or sore throat Cardiovascular Cardiovascular: Denies chest pain or palpitations Respiratory/Chest Respiratory/Chest: Denies cough, dyspnea or dyspnea on exertion Gastrointestinal Gastrointestinal: Denies abdominal pain, nausea or vomiting Genitourinary Genitourinary ED: Denies dysuria or urinary frequency Musculoskeletal Musculoskeletal: Denies arthralgias or myalgias Integumentary Denies rash Neurologic Neurologic: Denies headache(s) or paresthesias Psychiatric Psychiatric: Denies anxiety or depression Endocrine Endocrinology: Denies polydipsia or polyuria Allergic/Immunologic Allergic/Immunologic ED: Denies urticaria EXAM Physical Exam Const Vital Signs: 04/04/21 11:19 Temperature 98.5 F Temperature Source Temporal Pulse Rate 79 Respiratory Rate 16 Blood Pressure 146/91 H Blood Pressure Mean 109 Pulse Ox 95 Oxygen Delivery Method Room Air Positive well nourished and well developed General Appearance ED: well developed HEENT Reports normocephalic, head/scalp atraumatic and moist mucous membranes HEENT Narrative: Mild erythema of the right pinna. No abscess. Eyes PERRL and EOMs intact bilaterally Neck no lymphadenopathy and supple General: Negative for tenderness Chest Wall inspection of chest normal Resp normal respiratory effort and clear to auscultation bilaterally Cardio regular rate, regular rhythm and no murmurs GI normal to inspection, nondistended, normoactive bowel sounds Palpation: Negative for tender, guarding or rebound tenderness present Back/Spine no CVA tenderness Cervical Spine: Negative for cervical spine tenderness Thoracic Spine / Upper Back: Negative for thoracic spinal tenderness Extremity normal to inspection Extremity Narrative: Widespread local reaction of the right forearm. No cellulitis. Compartments soft. General Extremety ED: Negative for tenderness Neuro oriented x3 and CN's II-XII intact bilaterally Neuro Narrative: No focal deficits appreciated. Sensorium / Orientation: alert Psych mental status grossly normal Skin no rashes or lesions noted, no wounds and skin turgor normal MDM MDM MDM Narrative Medical decision making narrative: Patient presents with widespread local reaction to wasp sting. He has no evidence of anaphylaxis. He has marked sensitivity to Benadryl. As it involves the face and the arm, I am going to give him a short prednisone burst. He is counseled on concerning symptoms and reasons to return. He will be discharged home. Impression 1. Wide local reaction secondary to sting Discharge Plan Triage Chief Complaint: Allergic Reaction ED Provider: Eugene Song Dx/Rx/DC Orders Instructions: ED BEE STING General Allergic Rxn Prescriptions: New prednisone 20 MG tablet 60 mg PO DAILY Qty: 15 RF: 0 No Action lisinopril 10 MG tablet 10 mg PO DAILY RF: 0 rosuvastatin 10 MG tablet 10 mg PO QHS RF: 0 sennosides-docusate sodium 1 TABLET tablet 2 tab PO BID Qty: 14 RF: 0 meloxicam 7.5 MG tablet 7.5 mg PO BID Qty: 60 RF: 0 famotidine 20 MG tablet 20 mg PO DAILY Qty: 30 RF: 0 Primary Care Provider: Aung Urias Referrals: Aung Urias MD [Primary Care Provider] -
[2021-04-04] MEDS: predniSONE 20 MG Tablet 60 MG PO (11:35)
== END 2021-04-04 11:45 | disposition home or self-care (01) ==
LOC: ED 11:44
PROVIDERS: Emergency Provider Emergency Medicine; PCP Family Medicine
DX: T78.40XA Allergy, unspecified, initial encounter (principal); I10 Essential (primary) hypertension; E78.5 Hyperlipidemia, unspecified; E78.00 Pure hypercholesterolemia, unspecified; W57.XXXA Bitten or stung by nonvenomous insect and other nonvenomous arthropods, initial encounter; Z79.899 Other long term (current) drug therapy
CPT/HCPCS: 99283

== ENCOUNTER → 2021-04-17 15:34 | Outpatient (CLI) | payer BC, SELFPAY ==
[2021-04-04 11:19] VITALS: BMI 27.6
[2021-04-19 16:08] LABS: Endomysial Antibody IgA Negative (Negative)
[2021-04-20 07:29] LABS: Immunoglobulin A 169 mg/dL (61-437); t-Transglutaminase IgA <2 U/mL (0-3)
== END ==
PROVIDERS: PCP Family Medicine; Referring Provider Internal Medicine Gastroenterology; Visit Provider Internal Medicine Gastroenterology
DX: R19.7 Diarrhea, unspecified (principal)
CPT/HCPCS: 36415; 82784; 83516; 86140; 86255

== ENCOUNTER → 2021-05-07 07:52 | Outpatient (CLI) | payer BC, SELFPAY ==
--- NOTE | 2021-05-07 07:56 | RAD_ITS ---
PROCEDURE: SMALL BOWEL SERIES DATE OF EXAMINATION: 05/07/2021.. INDICATION: Male, 65 years old. 10 day history of a cramps and diarrhea and discomfort. PHYSICIAN: Didier Licona M.D. FLUOROSCOPY TIME (if supplied): (0:40) minutes/seconds. 10 images were obtained. TECHNIQUE: Radiographic and fluoroscopic images were taken of the small intestine following the ingestion of barium. COMPARISON: None. FINDINGS: A preliminary supine KUB was obtained. There is an unremarkable bowel gas pattern. Moderate amount of fecal material is present throughout the colon. Phleboliths are present within the pelvis. The lung bases are unremarkable. The patient is status post right total hip replacement. The patient orally ingested approximately 12 ounces of thin barium Normal visualized fundus, body, and antrum of the stomach. Normal duodenal bulb, C-loop, and proximal jejunum. Normal visualized mucosal folds of the jejunum and ileum. There are no demonstrated dilatations, strictures, or masses of the small intestine. There is no mass displacement of the loops of small intestine. There is a normal motor pattern with barium reaching the colon within approximately 60 minutes. Spot films under fluoroscopic observation demonstrated a normal terminal ileum and ileocecal valve. RAD/Small Bowel Series Only IMPRESSION: Normal small bowel series. Electronically Signed: Didier Licona MD at 14:21 EDT , Service support ,
== END ==
PROVIDERS: PCP Family Medicine; Referring Provider Internal Medicine Gastroenterology; Visit Provider Internal Medicine Gastroenterology
DX: R19.7 Diarrhea, unspecified (principal)
CPT/HCPCS: 74250

== ENCOUNTER → 2022-02-04 | Outpatient (CLI) | payer BC, SELFPAY ==
[2022-02-04 10:20] LABS: ALB/GLOB Ratio 1.2 RATIO (0.9-2.4); AST(SGOT) 23 U/L (15-37); Alanine Aminotransfer ALT/SGPT 42 U/L (16-61); Alkaline Phosphatase 50 U/L (45-117); Anion Gap 7 (5-15); BUN 11 mg/dL (7-18); BUN/Creat Ratio 12.1 RATIO (10-20); Chloride 105 mmol/L (98-107); Cholesterol 165 mg/dL (200); Creatinine, Serum 0.91 mg/dL (0.70-1.30); EST Glomerular Filtration Rate 89 mL/min (>60); Est Glom Filt Rate - Afr Amer 108 mL/min (>60); Globulin 3.4 g/dL (2.2-4.2); Glucose 107 mg/dL (74-106); High Density Lipoprotein 43 mg/dL; Potassium 3.6 mmol/L (3.5-5.1); Protein, Total 7.4 g/dL (6.4-8.2); Sodium Level 142 mmol/L (136-145); Triglycerides 255 mg/dL; Very Low Density Lipoprotein 51 mg/dL (5-40)
[2022-02-04 10:36] LABS: Microalbumin,Random Urine 21.6 mg/L (NO RANGE EST.)
== END | disposition home or self-care (01) ==
LOC: MTLAB 08:37
PROVIDERS: PCP Nurse Practitioner Family; Referring Provider Nurse Practitioner Family; Visit Provider Nurse Practitioner Family
DX: I10 Essential (primary) hypertension (principal); E78.5 Hyperlipidemia, unspecified
CPT/HCPCS: 36415; 80053; 80061; 82043

== ENCOUNTER → 2022-02-10 | Outpatient (CLI) | payer BC, SELFPAY ==
[2022-02-10 13:16] LABS: Hemoglobin A1c 5.8 % (3.8-5.6)
== END | disposition home or self-care (01) ==
LOC: MTLAB 09:45
PROVIDERS: PCP Nurse Practitioner Family; Referring Provider Nurse Practitioner Family; Visit Provider Nurse Practitioner Family
DX: R73.01 Impaired fasting glucose (principal)
CPT/HCPCS: 36415; 83036

== ENCOUNTER 2022-02-25 08:35 | Emergency (ER) | payer BC, SELFPAY ==
[2022-02-25 08:36] VITALS: BP 188/120; PULSE 79; RESP 14; TEMP 35.7; O2SAT 99; BMI 27.4
--- NOTE | 2022-02-25 09:34 | EX.ED.DYSGE1 ---
HPI History of Present Illness Chief Complaint: Nosebleed Informant: patient Narrative Narrative: Patient presents with a left-sided epistaxis that started when he blew his nose about 1 hour ago. He is on no blood thinners including not taking any aspirin. He has no trauma. He states he has allergies that have been acting up but has not had facial pain significant discharge or fevers. All the bleeding was on the left side. It stops with pressure on the front of the nose. Nothing specifically makes it worse. PFSH PFSH Medical History Hemorrhoids, internal High cholesterol Hypertension Home Medications lisinopril 20 mg PO DAILY 11/07/20 [History Last Taken 11/21/20] rosuvastatin 10 mg PO QHS 11/07/20 [History Last Taken Unknown] meloxicam 7.5 mg PO DAILY 02/25/22 [History Last Taken Unknown] tizanidine 4 mg PO QHS 02/25/22 [History Last Taken Unknown] Allergy/AdvReac Type Severity Reaction Status Date / Time Penicillins Allergy Rash Verified 02/25/22 08:35 strawberry Allergy Rash Verified 02/25/22 08:35 Family History Mother Colon cancer Father Cancer stomach Surgical History S/P left rotator cuff repair S/P right rotator cuff repair Status post right hip replacement Social History Smoking Status: Never smoker alcohol intake: current alcohol intake frequency: a few times a week ROS ROS ED Constitutional Constitutional ED: Denies chills or fever(s) Eyes Eyes: Denies blurry vision or diplopia ENT ENT ED: Reports other Details: Mild rhinorrhea and nasal congestion. Also see history of present illness. Cardiovascular Cardiovascular: Denies chest pain Respiratory/Chest Respiratory/Chest: Denies dyspnea Gastrointestinal Gastrointestinal: Denies nausea or vomiting Genitourinary Genitourinary ED: Denies hematuria Musculoskeletal Musculoskeletal: Denies myalgias Integumentary Denies rash Allergic/Immunologic Allergic/Immunologic ED: Denies urticaria EXAM Physical Exam Const Vital Signs: 02/25/22 08:36 02/25/22 12:08 Temperature 96.3 F L Temperature Source Temporal Pulse Rate 79 74 Respiratory Rate 14 16 Blood Pressure 188/120 H 171/113 H Blood Pressure Mean 142 132 Pulse Ox 99 97 Oxygen Delivery Method Room Air Room Air Positive well nourished and well developed General Appearance ED: well developed and NAD HEENT Reports moist mucous membranes HEENT Narrative: There is a clot in the left nare. There is some anterior Kiesselbach's plexus inflammation up high. This is all on the left. The right is completely clear of blood. Posterior pharynx shows a small amount of blood posteriorly but no active bleeding or running blood. Eyes PERRL Eyes Narrative: No petechiae. Neck supple Resp normal respiratory effort Cardio regular rate and regular rhythm GI normal to inspection, nondistended, normoactive bowel sounds and non-tender Palpation: soft Neuro Sensorium / Orientation: alert Skin no rashes or lesions noted Skin Narrative: No petechiae or purpura. MDM MDM MDM Narrative Medical decision making narrative: We went back in to spray Afrin. Bleeding seems to be stopped at this time. Taking off the nasal compression device did not cause rebleeding. Afrin was sprayed in both nostrils. Patient also added further information that he is on a steroid nasal spray that he has been using since start of allergy season this year. We discussed stopping this as major side effect of these is epistaxis. We also discussed again options. We had discussed this at first visit. We are going to try spray thrombin. If this does not work we will use nasal packing. He would prefer to avoid a packing in the nose for 2 days if possible. With the patient blow out clot. Even with this his bleeding seem to be controlled at this point. However, we had already drawn up spray thrombin. We use this in the left naris. He has been watched. He has gotten up walked around. Has had no further bleeding. He would like to go at this time. We discussed reasons to return and care. He will also hold his nasal steroid. Discharge Plan Triage Chief Complaint: Nosebleed ED Provider: Anibal Del Real Dx/Rx/DC Orders Clinical Impression: Left-sided epistaxis Instructions: ED Epistaxis (Adult) Prescriptions: No Action lisinopril 10 MG tablet 20 mg PO DAILY RF: 0 rosuvastatin 10 MG tablet 10 mg PO QHS RF: 0 meloxicam 7.5 MG tablet 7.5 mg PO DAILY RF: 0 tizanidine 4 mg capsule 4 mg PO QHS RF: 0 Primary Care Provider: Sushila Pollack NP Referrals: Florencio Newton MD [STAFF PHYSICIAN] - 3-5 Days Sushila Pollack NP, KANE-C [Primary Care Provider] - 3-5 Days Disposition Disposition: Home, Self Care
[2022-02-25] MEDS: Oxymetazoline 0.05% 1 SPRAY SPRAY.BTL 2 SPRAY NASAL (09:42)
[2022-02-25 12:08] VITALS: BP 171/113; PULSE 74; RESP 16; O2SAT 97
[2022-02-25] MEDS: Thrombin 5,000 IU Kit (PSA) 5,000 IU Vial 5000 IU TOPICAL (12:26)
== END 2022-02-25 12:28 | disposition home or self-care (01) ==
PROVIDERS: Emergency Provider Emergency Medicine; PCP Nurse Practitioner Family; Visit Provider Emergency Medicine
DX: R04.0 Epistaxis (principal); I10 Essential (primary) hypertension; E78.00 Pure hypercholesterolemia, unspecified; Z79.899 Other long term (current) drug therapy
CPT/HCPCS: 30901; 99282

== ENCOUNTER → 2022-02-27 | Outpatient (CLI) | payer BC, SELFPAY ==
--- NOTE | 2022-02-27 13:05 | RAD_ITS ---
STUDY: X-RAY - CERVICAL SPINE REASON FOR EXAM: Male, 66 years old. M47.812 TECHNIQUE: 4 view(s) of the cervical spine were obtained. COMPARISON: None FINDINGS: Normal anterior atlantoaxial articulation. Normal odontoid process. Normal cervical lordosis. Normal vertebral bodies and endplates. Normal disc space heights. Normal visualized intervertebral neuroforamina. The soft tissue structures are unremarkable. RAD/Cerv Spine 2 or 3 Views IMPRESSION: Normal x-ray examination of the visualized cervical spine. Electronically Signed: Kush Engle MD at 7:13 EDT ,
== END | disposition home or self-care (01) ==
LOC: RAD 13:03
PROVIDERS: PCP Nurse Practitioner Family; Visit Provider Anesthesiology Pain Medicine
DX: M47.812 Spondylosis without myelopathy or radiculopathy, cervical region (principal); M50.30 Other cervical disc degeneration, unspecified cervical region
CPT/HCPCS: 72040

== ENCOUNTER 2022-03-18 09:15 | Outpatient (RCR) | payer BC, SELFPAY | END 2022-03-18 23:59 | LOC: NS 09:15 | PROVIDERS: PCP Nurse Practitioner Family; Visit Provider Nurse Practitioner Family | DX: R73.03 Prediabetes (principal); E78.5 Hyperlipidemia, unspecified; I10 Essential (primary) hypertension | CPT/HCPCS: 97802 ==

== ENCOUNTER 2022-04-15 09:00 | Outpatient (RCR) | payer BC, SELFPAY | END 2022-04-17 23:59 | LOC: NS 09:00 | PROVIDERS: PCP Nurse Practitioner Family; Referring Provider Nurse Practitioner Family; Visit Provider Nurse Practitioner Family | DX: Z71.3 Dietary counseling and surveillance (principal); R73.03 Prediabetes; I10 Essential (primary) hypertension; E78.5 Hyperlipidemia, unspecified | CPT/HCPCS: 97803 ==

== ENCOUNTER → 2022-06-18 | Outpatient (CLI) | payer BC, SELFPAY ==
--- NOTE | 2022-06-18 15:41 | RAD_ITS ---
STUDY: XR Chest 2 Views 06/18/2022 3:47 PM REASON FOR EXAM: Male, 66 years old. CHEST PAIN COUGH COMPARISON: 2.8.21 TECHNIQUE: XR Chest 2 Views FINDINGS: There is no demonstrated pleural abnormality. Normal heart size. Normal mediastinum. Normal wiley. Prominent appearing increased interstitial lung markings. Normal visualized pulmonary arteries. There is atherosclerotic calcification of the aortic arch with tortuosity. There are diffuse degenerative changes of the visualized thoracic spine. There is degenerative osteoarthritis of the bilateral shoulders. There is no demonstrated abnormality of the visualized soft tissue structures of the upper abdomen. RAD/Chest PA and Lateral IMPRESSION: There are no acute findings. Electronically Signed: Joaquin Irene MD at 19:02 EDT ,
== END | disposition home or self-care (01) ==
LOC: MTLAB 15:39 → MTRAD 15:40
PROVIDERS: PCP Family Medicine; Referring Provider Family Medicine; Visit Provider Family Medicine
DX: R05.9 Cough, unspecified (principal)
CPT/HCPCS: 71046

== ENCOUNTER → 2022-08-28 | Outpatient (CLI) | payer MEDICARE, OTHER, SELFPAY | END | disposition home or self-care (01) | LOC: MTLAB 11:53 | PROVIDERS: PCP Family Medicine; Referring Provider Family Medicine; Visit Provider Family Medicine | DX: R19.7 Diarrhea, unspecified (principal) ==

== ENCOUNTER → 2022-10-21 | Outpatient (CLI) | payer MEDICARE, OTHER, SELFPAY ==
[2022-10-21 12:16] LABS: Absolute Lymphocyte Count 1.98 X10^3/uL (0.83-4.51); Absolute Neutrophil Count 4.8 X10^3/uL (2.0-7.7); Basophil# 0.08 X10^3/uL; Eosinophil# 0.28 X10^3/uL; Eosinophils% 3.5 % (0-5); Hematocrit 42.3 % (40-54); Hemoglobin 14.1 g/dL (13.0-16.5); Lymphocyte # 1.98 X10^3/ul (0.83-4.51); Lymphocyte % 24.8 % (19-41); Mean Corp Hgb Conc 33.3 g/dL (32-36); Mean Corpuscular Hgb 29.9 pg (27.0-32.0); Mean Corpuscular Volume 89.8 fL (80-94); Mean Platelet Vol. 9.2 fl (6.2-12.0); Monocyte# 0.76 X10^3/uL; Monocyte% 9.5 % (0-10); NRBC Flagged by Analyzer 0 % (0-5); Neutrophil # 4.83 X10^3/uL (2.7-7.7); Neutrophil % 60.4 % (47-70); Platelet Count 333 K/mm3 (150-450); RBC Distribution Width CV 12.6 % (11.6-14.6); RBC Distribution Width SD 41.1 fl (35.1-43.9); Red Blood Count 4.71 M/mm3 (4.6-6.2)
[2022-10-21 12:41] LABS: ALB/GLOB Ratio 1.1 RATIO (0.9-2.4); AST(SGOT) 28 U/L (15-37); Alanine Aminotransfer ALT/SGPT 58 U/L (16-61); Albumin, Serum 3.9 g/dL (3.2-5.0); Alkaline Phosphatase 51 U/L (45-117); Anion Gap 7 (5-15); BUN 21 mg/dL (7-18); BUN/Creat Ratio 25.2 RATIO (10-20); Calcium,Total 9.4 mg/dL (8.5-10.1); Chloride 105 mmol/L (98-107); Creatinine, Serum 0.83 mg/dL (0.70-1.30); EST Glomerular Filtration Rate 98 mL/min (>60); Est Glom Filt Rate - Afr Amer 119 mL/min (>60); Globulin 3.6 g/dL (2.2-4.2); Glucose 96 mg/dL (74-106); Protein, Total 7.5 g/dL (6.4-8.2); Sodium Level 140 mmol/L (136-145)
[2022-10-23 16:08] LABS: QNTFERON TB Mitogen Value > 10.00 IU/mL (.); QNTFERON TB Nil Value 0.03 IU/mL (.); QNTFERON TB1+ Ag Value 0.06 IU/mL (.); QNTFERON TB2+ Ag Value 0.05 IU/mL (.)
[2022-10-24 19:22] LABS: Hepatitis B Core Ab Total Negative (Negative); QNTIFERON TB Positive Criteria Negative (Negative)
== END | disposition home or self-care (01) ==
LOC: MTLAB 10:15
PROVIDERS: PCP Family Medicine; Referring Provider Physician Assistant; Visit Provider Physician Assistant
DX: L40.0 Psoriasis vulgaris (principal); Z79.899 Other long term (current) drug therapy
CPT/HCPCS: 36415; 80053; 85025; 86480; 86704

== ENCOUNTER → 2022-11-13 | Outpatient (CLI) | payer MEDICARE, OTHER, SELFPAY ==
--- NOTE | 2022-11-13 10:50 | MRI_ITS ---
STUDY: MRI RIGHT SHOULDER REASON FOR EXAM: Male, 67 years old. IMPINGEMENT SYNDROME, NO TRAUMA, DECREASED R.O.M TECHNIQUE: Standardized fat and water weighted pulse sequences were obtained in all 3 orthogonal planes. COMPARISON: None. FINDINGS: There is tendinosis with partial intrasubstance tearing of the distal supraspinatus tendon, series 6 images 06/07 and 07/08. Normal infraspinatus tendon. Normal subscapularis tendon. Normal teres minor tendon. Normal supraspinatus muscle. Normal infraspinatus muscle. Normal subscapularis muscle. Normal teres minor muscle. Normal glenohumeral articulation. Normal humeral head and visualized proximal humerus. Normal biceps labral complex. There is tendinosis of the proximal intracapsular long biceps tendon. There is tear of the superior labrum adjacent to the biceps anchor, series 4 images 06/07 through 09/07. Normal capsulo- ligamentous complex. Normal rotator interval. There is hypertrophic osteoarthritis of the acromioclavicular articulation with impingement upon the musculotendinous junction of the supraspinatus muscle. There is a Type II morphology (curved) acromion, with a neutral orientation. There is minimal fluid distention of the subacromial bursa, consistent with mild subacromial-subdeltoid bursitis. Normal visualized coracohumeral and coracoacromial ligaments. Normal quadrilateral space. Normal axillary space. Normal deltoid muscle. Normal trapezius muscle. MRI/Upper Ext Joint Only(Routine) IMPRESSION: Partial intrasubstance tear of the supraspinatus tendon. No full-thickness rotator cuff tear. SLAP lesion with tear of the superior labrum. Tendinosis of the long head of the biceps tendon. Acromioclavicular arthrosis with impingement. Electronically Signed: Anil Galindo MD at 8:09 EST ,
== END | disposition home or self-care (01) ==
LOC: MRI 10:23
PROVIDERS: PCP Family Medicine; Visit Provider Specialist
DX: M75.41 Impingement syndrome of right shoulder (principal); M25.511 Pain in right shoulder; M65.811 Other synovitis and tenosynovitis, right shoulder
CPT/HCPCS: 73221

== ENCOUNTER → 2023-03-18 | Outpatient (CLI) | payer MEDICARE, OTHER, SELFPAY | END | disposition home or self-care (01) | LOC: MFPLAB 15:33 | PROVIDERS: PCP Family Medicine; Visit Provider Family Medicine | DX: E78.5 Hyperlipidemia, unspecified (principal); Z84.81 Family history of carrier of genetic disease ==

== ENCOUNTER → 2023-03-18 | Outpatient (CLI) | payer MEDICARE, OTHER, SELFPAY ==
[2023-03-18 18:02] LABS: Cholesterol 158 mg/dL (200); High Density Lipoprotein 54 mg/dL; PSA,Total - Annual Screen 2.18 ng/mL (0.00-4.00); Triglycerides 167 mg/dL; Very Low Density Lipoprotein 33 mg/dL (5-40)
== END | disposition home or self-care (01) ==
LOC: MFPLAB 15:04
PROVIDERS: PCP Family Medicine; Visit Provider Family Medicine
DX: R73.03 Prediabetes (principal); E78.5 Hyperlipidemia, unspecified; Z84.81 Family history of carrier of genetic disease; Z12.5 Encounter for screening for malignant neoplasm of prostate
CPT/HCPCS: 36415; 80061; 83036; 84153; G0103

== ENCOUNTER 2023-04-21 19:42 | Emergency (ER) | payer MEDICARE, BC, SELFPAY ==
[2023-04-21 19:43] VITALS: BP 144/91; PULSE 105; RESP 16; TEMP 36.8; O2SAT 94; BMI 27.7
--- NOTE | 2023-04-21 20:59 | CT_ITS ---
STUDY: CT ABDOMEN AND PELVIS WITH CONTRAST REASON FOR EXAM: Male, 67 years old. llq abdominal pain RADIATION DOSAGE (If Supplied By Facility): CTDIvol = ( 16.24 ) mGy, DLP = ( 931.61 ) mGycm TECHNIQUE: Transaxial images were obtained from the dome of the diaphragm to the symphysis pubis without oral contrast. IV 100mL Isovue-370 was administered. Sagittal and coronal images were reconstructed. Individualized dose optimization techniques were used for this CT. COMPARISON: None. FINDINGS: The visualized lung bases are unremarkable. The visualized portions of the heart are within normal limits. Normal liver. Normal gallbladder and extrahepatic biliary system. Normal spleen. Normal pancreas. Normal bilateral adrenal glands. Normal right kidney. Normal left kidney. Normal visualized stomach. Normal small intestine. There is diverticulosis, with thickening of the colon wall, and pericolonic inflammation changes consistent with acute diverticulitis. No loculated fluid collection to suggest abscess. No pneumoperitoneum to suggest perforation. The appendix is visualized and appears normal. Normal abdominal aorta. Normal inferior vena cava. Normal retroperitoneum. Normal urinary bladder. Bilateral small inguinal hernias containing fat. Status post right hip arthroplasty which produces streak artifact and obscures the pelvis. CT/Abdomen/Pelvis W IV Cont ONLY IMPRESSION: Diverticulitis the proximal sigmoid colon without abscess or perforation. Electronically Signed: Mp Diaz MD at 23:17 EDT ,
--- NOTE | 2023-04-21 21:15 | ED.VIS.GI ---
HPI HPI - GI History of Present Illness Chief Complaint: Abd Pain Narrative Narrative: 67-year-old male presenting with left lower quadrant abdominal pain. He states started earlier tonight. He states he thought he had a fever 101.4. Patient took nothing prior to arrival for fever. He does not have any nausea. He does have a history of diverticulitis he states in the past. No urinary symptoms. No direct trauma. No constipation or diarrhea PFSH PFSH Medical History Hemorrhoids, internal High cholesterol Hypertension Home Medications lisinopril 10 mg tablet 20 mg PO DAILY 11/07/20 [History Last Taken 11/21/20] rosuvastatin 10 mg tablet 10 mg PO QHS 11/07/20 [History Last Taken Unknown] meloxicam 7.5 mg tablet 7.5 mg PO DAILY 02/25/22 [History Last Taken Unknown] tizanidine 4 mg capsule 4 mg PO QHS 02/25/22 [History Last Taken Unknown] methylcellulose (laxative) 500 mg tablet (Citrucel) 500 mg PO DAILY 01/13/23 [History Last Taken Unknown] pantoprazole 20 mg tablet,delayed release 20 mg PO DAILY 01/13/23 [History Last Taken Unknown] ciprofloxacin HCl 500 mg tablet (Cipro) 500 mg PO BID #20 tabs 04/21/23 [Rx Last Taken Unknown] hydrocodone-acetaminophen 5-325mg 5mg-325mg 1 tab PO Q6H 3 days #12 TABLETS 04/21/23 [Rx Last Taken Unknown] metronidazole 500 mg tablet 500 mg PO Q8H 7 days #30 tabs 04/21/23 [Rx Last Taken Unknown] Allergy/AdvReac Type Severity Reaction Status Date / Time Penicillins Allergy Rash Verified 04/21/23 19:43 strawberry Allergy Rash Verified 04/21/23 19:43 Family History Mother Colon cancer Father Cancer stomach Surgical History S/P left rotator cuff repair S/P right rotator cuff repair Status post right hip replacement Social History Smoking Status: Never smoker alcohol intake: current alcohol intake frequency: a few times a week ROS ROS ED Constitutional Constitutional ED: Reports chills and fever(s); Denies sweats Eyes Eyes: Denies blurry vision or change in vision ENT ENT ED: Denies ear pain or sore throat Cardiovascular Cardiovascular: Denies chest pain, palpitations or racing heartbeat Respiratory/Chest Respiratory/Chest: Denies cough, dyspnea or sputum Gastrointestinal Gastrointestinal: Reports abdominal pain; Denies constipation, diarrhea, nausea or vomiting Genitourinary Genitourinary ED: Denies dysuria, hematuria or urinary frequency Musculoskeletal Musculoskeletal: Reports myalgias; Denies arthralgias or neck pain Integumentary Denies abscess, Abrasions or rash Neurologic Neurologic: Denies headache(s), paresthesias or weakness Psychiatric Psychiatric: Denies anxiety, depression, suicidal ideation or suicidal thoughts Endocrine Endocrinology: Denies polydipsia or polyuria EXAM Physical Exam Const Vital Signs: 04/21/23 19:43 04/21/23 21:21 Temperature 98.3 F 98.8 F Temperature Source Temporal Oral Pulse Rate 105 H 89 Respiratory Rate 16 16 Blood Pressure 144/91 H 146/91 H Blood Pressure Mean 108 109 Pulse Ox 94 95 Oxygen Delivery Method Room Air Positive well nourished General Appearance ED: NAD; Negative for pallor HEENT Reports moist mucous membranes normocephalic and atraumatic Eyes PERRL and EOMs intact bilaterally Resp normal respiratory effort and clear to auscultation bilaterally Auscultation: Negative for rales, rhonchi or wheezes Cardio regular rate and regular rhythm GI Palpation: tender LLQ Neuro CN's II-XII intact bilaterally and moves all extremities Sensorium / Orientation: alert Motor Exam: strength 5/5 throughout and general weakness Psych mental status grossly normal Skin General Skin Exam: Negative for jaundice or pallor MDM MDM MDM Narrative Medical decision making narrative: Patient presenting with left lower quadrant pain, fevers and chills. Patient has history of diverticulitis. Differential includes diverticulitis, colitis, UTI, pyelonephritis, kidney stone. Most likely this is however diverticulitis. CBC to assess white blood cell count, hemoglobin, platelets, differential. CMP to assess liver function, renal function, glucose, electrolytes, anion gap. Urinalysis to assess for UTI. CBC shows a slight leukocytosis of 13. H&H are stable. Platelets are normal. Renal function electrolytes within normal limits. LFTs are normal. Urinalysis is negative. CT of the abdomen pelvis with IV contrast shows acute noncomplicated diverticulitis. Patient allergic to penicillin so he is given Cipro and Flagyl. Patient is on Zanaflex which is contraindicated with Cipro so he will be switched to [place] for the short time he is on antibiotics. He is given the first doses of Cipro and Flagyl in the ER. He is given prescriptions for pain medication and antibiotics in the ER he will need these overnight. All questions were answered. Return precautions discussed. Impression: 1. acute uncomplicated diverticulitis 2. Leukocytosis Lab Data Attestation: I reviewed the patient's lab results. Labs: Laboratory Results - last 24 hr 04/21/23 04/21/23 21:20 21:25 WBC 13.0 H RBC 4.82 Hgb 15.3 Hct 43.9 MCV 91.1 MCH 31.7 MCHC 34.9 RDW Std Deviation 41.5 RDW Coeff of Fernando 12.5 Plt Count 278 MPV 9.0 Immature Gran % (Auto) 0.500 Neut % (Auto) 76.9 H Lymph % (Auto) 14.8 L [place] % (Auto) 6.4 Eos % (Auto) 1.2 Baso % (Auto) 0.2 Absolute Neuts (auto) 10.0 H Absolute Lymphs (auto) 1.92 Nucleated RBC % 0 Sodium 139 Potassium 3.9 Chloride 106 Carbon Dioxide 28.0 Anion Gap 5 BUN 15 Creatinine 1.08 Estim Creat Clear Calc 63.75 Est GFR (MDRD) Af Amer 88 Est GFR (MDRD) Non-Af 73 BUN/Creatinine Ratio 13.9 Glucose 105 Calcium 9.7 Total Bilirubin 0.50 AST 22 ALT 34 Alkaline Phosphatase 64 Total Protein 8.0 Albumin 4.3 Globulin 3.7 Albumin/Globulin Ratio 1.2 Urine Color Yellow Urine Clarity Clear Urine pH 5.0 Ur Specific [place] 1.025 Urine Protein 15 H Urine Glucose (UA) Normal Urine Ketones Negative Urine Occult Blood 10 H Urine Nitrite Negative Urine Bilirubin Negative Urine Urobilinogen Normal Ur Leukocyte Esterase Negative Urine RBC 0 SEEN Urine WBC 0 SEEN Ur Squamous Epith Cells 0 SEEN Urine Bacteria 0 SEEN Urine Mucus 0 SEEN Radiography Diagnostic Testing: Clinical Impression(s) from Imaging Studies Abdomen/Pelvis CT 04/21/23 20:59 IMPRESSION: Diverticulitis the proximal sigmoid colon without abscess or perforation. Electronically Signed: Mp Diaz MD at 23:17 EDT , Discharge Plan Triage Chief Complaint: Abd Pain ED Provider: Guillaume Calderón Dx/Rx/DC Orders Instructions: ED Diverticulitis Prescriptions: New ciprofloxacin HCl [Cipro] 500 mg tablet 500 mg PO BID Qty: 20 0RF metronidazole 500 mg tablet 500 mg PO Q8H 7 Days Qty: 30 0RF hydrocodone-acetaminophen 5-325 mg tablet 1 tab PO Q6H 3 Days Qty: 12 0RF No Action Citrucel 500 mg tablet 500 mg PO DAILY pantoprazole 20 mg tablet,delayed release (DR/EC) 20 mg PO DAILY lisinopril 10 MG tablet 20 mg PO DAILY rosuvastatin 10 MG tablet 10 mg PO QHS meloxicam 7.5 MG tablet 7.5 mg PO DAILY Rx Instructions: Do not take any other nonsteroidal anti-inflammatories while using meloxicam/Mobic. tizanidine 4 mg capsule 4 mg PO QHS Patient Comments: take 1 capsule by mouth once daily Primary Care Provider: Charu Luis Referrals: Charu Luis DO [Primary Care Provider] - Amanuel Baker DO [Med Staff - Active Staff] - As Needed Disposition Disposition: Home, Self Care
[2023-04-21] MEDS: Ketorolac 15 MG/ML Vial IV (21:19)
[2023-04-21] MEDS: 0.9% Normal Saline 1,000 ML 1000 ML IV (21:19)
[2023-04-21 21:21] VITALS: BP 146/91; PULSE 89; RESP 16; TEMP 37.1; O2SAT 95
[2023-04-21 21:29] LABS: Bacteria 0 SEEN /hpf (None Seen); Mucous, Urine 0 SEEN /hpf (<or=2+); Red Blood Cells-Urine 0 SEEN /hpf (0-5); Squamous Epithelial Cells - UA 0 SEEN /hpf (0-5); White Blood Cells 0 SEEN /hpf (0-5)
[2023-04-21 21:31] LABS: Color, Urine Yellow (Yellow); Glucose, Dipstick Normal (Normal); Ketone-Dipstick Negative (Negative); Leukocyte Esterase-Dipstick Negative /ul (Negative); Nitrite-Dipstick Negative (Negative); Occult Blood-Urine 10 /ul (Negative); Protein-Dipstick 15 mg/dl (Negative); Specific Gravity, Urine 1.025 (1.002-1.030); Urine Bilirubin Dipstick Negative (Negative); Urine Clarity Clear (Clear); Urine Urobilinogen Normal (Normal)
[2023-04-21 21:31] LABS: Absolute Lymphocyte Count 1.92 X10^3/uL (0.83-4.51); Basophil# 0.03 X10^3/uL; Basophil% 0.2 % (0-1); Eosinophil# 0.16 X10^3/uL; Eosinophils% 1.2 % (0-5); Hematocrit 43.9 % (40-54); Hemoglobin 15.3 g/dL (13.0-16.5); Lymphocyte # 1.92 X10^3/ul (0.83-4.51); Lymphocyte % 14.8 % (19-41); Mean Corp Hgb Conc 34.9 g/dL (32-36); Mean Corpuscular Hgb 31.7 pg (27.0-32.0); Mean Corpuscular Volume 91.1 fL (80-94); Monocyte# 0.83 X10^3/uL; Monocyte% 6.4 % (0-10); NRBC Flagged by Analyzer 0 % (0-5); Neutrophil # 10.01 X10^3/uL (2.7-7.7); Neutrophil % 76.9 % (47-70); Platelet Count 278 K/mm3 (150-450); RBC Distribution Width CV 12.5 % (11.6-14.6); RBC Distribution Width SD 41.5 fl (35.1-43.9); Red Blood Count 4.82 M/mm3 (4.6-6.2)
[2023-04-21 21:47] LABS: ALB/GLOB Ratio 1.2 RATIO (0.9-2.4); AST(SGOT) 22 U/L (15-37); Alanine Aminotransfer ALT/SGPT 34 U/L (16-61); Albumin, Serum 4.3 g/dL (3.2-5.0); Alkaline Phosphatase 64 U/L (45-117); Anion Gap 5 (5-15); BUN 15 mg/dL (7-18); BUN/Creat Ratio 13.9 RATIO (10-20); Calcium,Total 9.7 mg/dL (8.5-10.1); Chloride 106 mmol/L (98-107); Creatinine, Serum 1.08 mg/dL (0.70-1.30); EST Glomerular Filtration Rate 73 mL/min (>60); Est Glom Filt Rate - Afr Amer 88 mL/min (>60); Estimated Creatinine Clearance 63.75 ml/min; Globulin 3.7 g/dL (2.2-4.2); Glucose 105 mg/dL (74-106); Potassium 3.9 mmol/L (3.5-5.1); Sodium Level 139 mmol/L (136-145)
[2023-04-21] MEDS: Ciprofloxacin 500 MG Tablet PO (23:41)
[2023-04-21] MEDS: metroNIDAZOLE 500 MG Tablet PO (23:41)
[2023-04-21 23:44] VITALS: RESP 16
== END 2023-04-21 23:47 | disposition home or self-care (01) ==
PROVIDERS: Emergency Provider Student in an Organized Health Care Education/Training Program; PCP Family Medicine; Visit Provider Student in an Organized Health Care Education/Training Program
DX: K57.92 Diverticulitis of intestine, part unspecified, without perforation or abscess without bleeding (principal); D72.829 Elevated white blood cell count, unspecified
CPT/HCPCS: 74177; 80053; 81001; 85025; 96361; 96374; 99283; J7030; Q9967; A4216

== ENCOUNTER → 2023-05-26 | Outpatient (CLI) | payer MEDICARE, BC, SELFPAY | END | disposition home or self-care (01) | LOC: LABSPEC 12:35 | PROVIDERS: PCP Family Medicine; Referring Provider Family Medicine; Visit Provider Family Medicine | DX: R35.0 Frequency of micturition (principal) | CPT/HCPCS: 87086 ==

== ENCOUNTER → 2023-06-03 | Outpatient (CLI) | payer MEDICARE, BC, SELFPAY ==
--- NOTE | 2023-06-03 08:30 | MRI_ITS ---
EXAM: MR LUMBAR SPINE WITHOUT INTRAVENOUS CONTRAST CLINICAL INDICATION: pain IN LOWER BACK X 2 YRS TECHNIQUE: Multiplanar and multisequence MR images of the lumbar spine without intravenous contrast. COMPARISON: Radiographs May 22, 2023 showing multilevel degenerative changes. Abdomen and pelvis CT April 21, 2023. FINDINGS: VERTEBRAE: Minimal endplate changes with spondylosis and minimal Modic type endplate changes at L2 reduction 4 and L4-5. Vertebral body heights are preserved. Unremarkable posterior elements. Normal alignment. No spondylolisthesis. There is preservation of the normal lumbar lordosis. SPINAL CORD: Normal position and signal intensity of the conus medullaris. The conus is at the lower margin of L1, normal position. SOFT TISSUES: Unremarkable. DISCS/SPINAL CANAL/NEURAL FORAMINA: L1-L2: Unremarkable. Normal disc height and morphology. Normal spinal canal and lateral recesses. Normal neuroforamina. L2-L3: Unremarkable. Normal disc height and morphology. Normal spinal canal and lateral recesses. Normal neuroforamina. L3-L4: Normal disc height, slight decreased T2 signal intensity, anterior spondylosis and annular disc bulge slightly flattening the ventral thecal sac, mildly narrowing the left lateral recess, and minimally narrowing the proximal neural foramen. No ruby spinal stenosis, AP diameter of the canal in the midline is 1.1 cm. L4-L5: Mild decreased disc height, decreased T2 signal intensity, anterior spondylosis and anterior and right lateral disc-osteophyte complexes. Minimal narrowing of the ventral thecal sac, the AP diameter of the canal is 1.3 cm. Minimal neural foraminal narrowing. L5-S1: Normal disc height. Mild decreased T2 signal intensity. Mild annular disc bulge, and minimal narrowing of the proximal right neural foramen. No spinal stenosis. MRI/Spine Lumbar (Routine) IMPRESSION: Multilevel mild degenerative changes. No ruby spinal stenosis or high-grade neural foraminal stenosis. Electronically Signed: Magdalena Gao MD at 0:13 EDT ,
== END | disposition home or self-care (01) ==
LOC: MRI 07:58
PROVIDERS: PCP Family Medicine; Referring Provider Orthopaedic Surgery; Visit Provider Orthopaedic Surgery
DX: M54.50 Low back pain, unspecified (principal)
CPT/HCPCS: 72148

== ENCOUNTER → 2024-01-22 | Outpatient (CLI) | payer MEDICARE, BC, SELFPAY ==
--- NOTE | 2024-01-22 06:37 | MRI_ITS ---
STUDY: MRI BRAIN WITH AND WITHOUT CONTRAST (ATTENTION INTERNAL AUDITORY CANALS - I.A.C.''s) REASON FOR EXAM: Male, 68 years old. Tendinitis left ear acoustic neuroma TECHNIQUE: Standardized multiplanar fat and water weighted pulse sequences were obtained. w w/o 15ml clariscan contrast material was administered intravenously for the contrast portion of the examination. COMPARISON: None. FINDINGS: Normal bilateral temporal bones. Normal bilateral internal auditory canals. There is no demonstrated intracanalicular or cisternal vestibular schwannoma (acoustic neuroma). There is no enhancement of the bilateral VIIth or VIIIth cranial nerves. Normal bilateral cochlea, vestibules and semicircular canals. Normal size of the ventricles and extra-axial spaces for the patient''s age. Normal white matter tracts of the supratentorial brain. Normal bilateral basal ganglia. Normal thalami. Normal flow voids within the major intracranial circulation suggesting patency by spin echo criteria. Normal venous enhancement. There is no enhancing intra-axial or extra-axial abnormality. There is no extra-axial fluid accumulation. Normal sella turcica, pituitary gland, infundibular stalk, optic chiasm and hypothalamus. Normal tectal plate and pineal gland. Normal midbrain, abbey and medulla. Normal cerebellum. Normal basal cisterns. No demonstrated orbital abnormality, within the constraints of a routine brain study. Normal visualized paranasal sinuses. Normal calvarium and skull base. Normal visualized soft tissue structures. Normal visualized upper cervical spine. MRI/Brain W/WO Contrast IMPRESSION: There are no acute findings. Electronically Signed: Joaquin Irene MD at 15:09 EDT ,
[2024-01-22 07:12] LABS: CREATININE FINGERSTICK < 1.0 mg/dL (0.70-1.30); EGFR FINGERSTICK > 60.0000 mL/min (>60)
== END | disposition home or self-care (01) ==
LOC: MRI 06:34
PROVIDERS: PCP Family Medicine; Referring Provider Otolaryngology Otolaryngology/Facial Plastic Surgery; Visit Provider Otolaryngology Otolaryngology/Facial Plastic Surgery
DX: H90.42 Sensorineural hearing loss, unilateral, left ear, with unrestricted hearing on the contralateral side (principal)
CPT/HCPCS: 70553; A9575

== ENCOUNTER → 2024-03-17 | Outpatient (CLI) | payer MEDICARE, BC, SELFPAY ==
--- NOTE | 2024-03-17 09:04 | NEURO ---
NCS and/or EMG Patient Report Ordering Doctor: Shubham Barry DATE OF SERVICE: 03/17/24 Clinical Summary: 68 year old male with symptoms of numbness, tingling, and pain in both of his hands/wrists. Nerve Conduction Studies Summary: The median-D2 SNAP distal latency was prolonged bilaterally with reduced amplitudes. The median-APB CMAP distal latency was prolonged bilaterally. The right median motor conduction velocity was reduced across the forearm segment. The median F-wave onset latency was prolonged bilaterally. Needle Examination Summary: Needle examination of select muscles of the bilateral upper extremities demonstrated a higher proportion of motor unit action potentials with reduced recruitment, increased amplitude, increased duration, and polyphasia in the right triceps, right flexor carpi radialis, and bilateral abductor pollicis brevis muscles. 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
== END | disposition home or self-care (01) ==
LOC: PSN 06:57
PROVIDERS: PCP Family Medicine; Referring Provider Specialist; Visit Provider Specialist
DX: G56.03 Carpal tunnel syndrome, bilateral upper limbs (principal)
CPT/HCPCS: 95886; 95911

== ENCOUNTER → 2024-03-22 | Outpatient (CLI) | payer MEDICARE, BC, SELFPAY ==
[2024-03-22 09:48] LABS: Absolute Lymphocyte Count 2.06 X10^3/uL (0.83-4.51); Absolute Neutrophil Count 3.6 X10^3/uL (2.0-7.7); Basophil# 0.05 X10^3/uL; Basophil% 0.8 % (0-1); Eosinophil# 0.25 X10^3/uL; Eosinophils% 3.8 % (0-5); Hematocrit 44.3 % (40-54); Hemoglobin 14.4 g/dL (13.0-16.5); Lymphocyte # 2.06 X10^3/ul (0.83-4.51); Lymphocyte % 31.4 % (19-41); Mean Corp Hgb Conc 32.5 g/dL (32-36); Mean Corpuscular Hgb 30.1 pg (27.0-32.0); Mean Corpuscular Volume 92.5 fL (80-94); Mean Platelet Vol. 9.8 fl (6.2-12.0); Monocyte# 0.63 X10^3/uL; Monocyte% 9.6 % (0-10); NRBC Flagged by Analyzer 0 % (0-5); Neutrophil # 3.56 X10^3/uL (2.7-7.7); Neutrophil % 54.1 % (47-70); Platelet Count 229 K/mm3 (150-450); RBC Distribution Width CV 13.3 % (11.6-14.6); RBC Distribution Width SD 45.6 fl (35.1-43.9); Red Blood Count 4.79 M/mm3 (4.6-6.2); White Blood Count 6.6 K/mm3 (4.4-11.0)
[2024-03-22 10:14] LABS: Vitamin D,25 Hydroxy 68.4 ng/mL
[2024-03-22 10:40] LABS: ALB/GLOB Ratio 1.2 RATIO (0.9-2.4); AST(SGOT) 25 U/L (15-37); Alanine Aminotransfer ALT/SGPT 37 U/L (16-61); Albumin, Serum 4.1 g/dL (3.2-5.0); Alkaline Phosphatase 58 U/L (45-117); Anion Gap 8 (5-15); BUN 23 mg/dL (7-18); BUN/Creat Ratio 23.7 RATIO (10-20); Calcium,Total 9.6 mg/dL (8.5-10.1); Chloride 106 mmol/L (98-107); Cholesterol 156 mg/dL (200); Creatinine, Serum 0.97 mg/dL (0.70-1.30); EST Glomerular Filtration Rate 82 mL/min (>60); Est Glom Filt Rate - Afr Amer 99 mL/min (>60); Globulin 3.4 g/dL (2.2-4.2); Glucose 106 mg/dL (74-106); High Density Lipoprotein 54 mg/dL; PSA,Total - Annual Screen 2.87 ng/mL (0.00-4.00); Protein, Total 7.5 g/dL (6.4-8.2); Sodium Level 140 mmol/L (136-145); Triglycerides 152 mg/dL; Very Low Density Lipoprotein 30 mg/dL (5-40)
[2024-03-22 10:41] LABS: Hemoglobin A1c 5.6 % (3.8-5.6)
== END | disposition home or self-care (01) ==
LOC: MTLAB 08:58
PROVIDERS: PCP Family Medicine; Referring Provider Family Medicine; Visit Provider Family Medicine
DX: Z12.5 Encounter for screening for malignant neoplasm of prostate (principal); I10 Essential (primary) hypertension; R73.03 Prediabetes
CPT/HCPCS: 36415; 80053; 80061; 82306; 83036; 84153; 85025; G0103